=== PATIENT | female | born 1935 | race Caucasian/White ===

== ENCOUNTER 2017-03-09 10:34 | Emergency (ER) | payer MEDICARE, OTHER ==
[2017-03-09] MEDS ORDERED: diPHENhydraMINE IV* 50 MG/ML 1 ml VIAL (BENADRYL) IM ONE (11:21)
[2017-03-09] MEDS ORDERED: NS 0.9% 1000 ML* 1,000 ML IV ONE (11:21)
[2017-03-09] MEDS ORDERED: Metoclopramide IV* 5 MG/ML 2 ML VIAL IV ONE (11:21)
[2017-03-09] MEDS ORDERED: Ketorolac INJ* 30 MG/ML 1 ML VIAL IV ONE (11:21)
[2017-03-09] MEDS ORDERED: Morphine INJ* 4 MG/ML 1 ML SYRINGE IV ONE (11:21)
--- NOTE | 2017-03-09 11:48 | RAD ---
HISTORY: Right-sided headache and pain COMPARISONS: None TECHNIQUE: Multiple contiguous axial CT scans were obtained of the head without intravenous contrast. FINDINGS: HEMORRHAGE/INFARCT: There is no hemorrhage or acute infarct. MASSES/SHIFT: There is no mass or shift. EXTRA-AXIAL SPACES: There are no extra-axial fluid collections. SULCI AND VENTRICLES: The sulci and ventricles are normal in size and position for the patient's stated age. CEREBRUM: There are no focal parenchymal abnormalities. BRAINSTEM: There are no focal parenchymal abnormalities. CEREBELLUM: There are no focal parenchymal abnormalities. VESSELS: The vessels are grossly normal. PARANASAL SINUSES: The paranasal sinuses are clear. ORBITS: The orbits are unremarkable. BONES AND SOFT TISSUE: No bone or soft tissue abnormalities are noted. OTHER: None IMPRESSION: NO ACUTE INTRACRANIAL PATHOLOGY.
[2017-03-09 12:00] LABS: Hematocrit 42 % (35-47); Hemoglobin 13.9 g/dl (12.0-16.0); Mean Corpuscular HGB Conc 34 g/dl (31-36); Mean Corpuscular Hemoglobin 30 pg (27-31); Mean Corpuscular Volume 88 fL (80-97); Mean Platelet Volume 8 um3 (7.4-10.4); Red Cell Distribution Width 14 % (10.5-15); White Blood Count 10.1 10^3/ul (3.5-10.8)
[2017-03-09 12:17] LABS: Albumin 4.1 g/dL (3.2-5.2); BUN/Creatinine Ratio 19.1 (8-20); Calcium 9.9 mg/dL (8.6-10.3); EGFR African American 73.5 (>60); EGFR Non-African American 57.2 (>60); Globulin 2.7 g/dL (2-4); Potassium 3.8 mmol/L (3.5-5.0); Total Bilirubin 0.6 mg/dL (0.2-1.0); Total Protein 6.8 g/dL (6.4-8.9)
[2017-03-09 13:26] LABS: Erythrocyte Sed Rate 24 mm/Hr (0-40)
[2017-03-09 13:55] LABS: Urine Bacteria Absent (Absent); Urine Bilirubin Negative (Negative); Urine Glucose Negative (Negative); Urine Nitrite Negative (Negative)
[2017-03-09 15:16] LABS: C Reactive Protein 2.79 mg/L (< 5.00)
[2017-03-09] MEDS ORDERED: Iodixanol* (CONTRAST) 320 MG/ML 100 ML SDV IV ONE (15:31)
--- NOTE | 2017-03-09 16:00 | RAD ---
INDICATION: RIGHT side pain. Question aneurysm or mass. COMPARISON: Noncontrast head CT of the same date. TECHNIQUE: Multidetector CT images were obtained from the skull base to the vertex of the head with 60 mL Visipaque 320 IV contrast. Arterial phase of enhancement. Multiplanar reformation including maximum intensity projection. 3-D arterial volume rendering. Stenosis estimations based on denominator of distal arterial diameter. HEAD ANGIOGRAM REPORT: Mild calcific plaque at the carotid siphons without hemodynamic significant stenosis resulting. Unremarkable M1 and M2 segments of the middle cerebral arteries as well as the A1 and A2 segments of the anterior cerebral arteries. Suggestion of a patent anterior indicating artery. Normal variant dominant LEFT vertebral artery with both vertebral arteries patent and contributing to the basilar artery. Tortuous basilar artery without aneurysm. Unremarkable cerebellar artery origins. Patent posterior cerebral arteries are supplied primarily by the posterior circulation with normal variant hypoplastic posterior indicating arteries. No intracranial aneurysm or vascular malformation evident. No enhancing lesions evident. Patent dural venous sinuses with normal variant dominant RIGHT transverse and sigmoid sinus. IMPRESSION: Normal variation without pathologic finding of the intracranial arterial vasculature. Negative for intracranial aneurysm. CPT II: CPT II Codes: 3100F
[2017-03-09 16:49] VITALS: BP 123/55
--- NOTE | 2017-03-09 18:53 | ED ---
Lexis Deshpande Edward, scribed for Jose Guillaume MD on 03/09/17 at 1102 . Headache - HPI Summary HPI Summary: 81 y/o female BIBA c/o a constant, shooting DAWSON in the R side of the head starting yesterday. There were 4 episodes yesterday. Today the pain is constant and shooting. The pain radiates down the back of the neck. The pain is aggravated by touching the head. Associated sx: ABD pain, pain in R eye, incontinence, chills and R sinus clog. No vision deficit, no photophobia, no N/V , weakness in extremities, no numbness/tingling in extremities. PMHx migraines, COPD, CHF. - History Of Current Complaint Chief Complaint: EDHeadache Stated Complaint: HEADACHE Hx Obtained From: Patient Onset/Duration: Sudden Onset, Started days ago - Yesterday, Still Present Character: Pressure - with shooting Location of Headache: Other: - R side of head Associated Signs And Symptoms: Other (Noted In Comments) - Pain in R eye, incontinent, chills and R sinus clog. negative for N/V, vision deficit, photophobia, weakness in extremities - Allergies/Home Medications Allergies/Adverse Reactions: Allergies Allergy/AdvReac Type Severity Reaction Status Date / Time Sulfamethoxazole Allergy Unknown Verified 03/09/17 11:57 w/Trimethoprim Reaction [From Sulfatrim] Details PMH/Surg Hx/FS Hx/Imm Hx Previously Healthy: No Cardiovascular History: Reports: Hx Congestive Heart Failure Respiratory History: Reports: Hx Chronic Obstructive Pulmonary Disease (COPD) Neurological History: Reports: Hx Migraine Infectious Disease History: No Infectious Disease History: Denies: Traveled Outside the [place] in Last 30 Days - Family History Known Family History: Positive: Cardiac Disease - Father [place] @ 71, Other - Sister - [place] - Social History Occupation: Retired Lives: With Family Alcohol Use: Occasionally Hx Substance Use: No Substance Use Type: Reports: None Hx Tobacco Use: Yes Smoking Status (MU): Former Smoker Review of Systems Positive: Chills Eyes: Other - Pain in R eye Negative: Photophobia, Blurred Vision ENT: Other - Sinus pressure Cardiovascular: Negative Respiratory: Negative Positive: Abdominal Pain. Negative: Vomiting, Nausea Positive: incontinence Musculoskeletal: Negative Skin: Negative Neurological: Other - No numbness/tingling in extremities Positive: Headache. Negative: Weakness Psychological: Normal All Other Systems Reviewed And Are Negative: Yes Physical Exam - Summary Physical Exam Summary: The patient is well-nourished in no acute distress and in no acute pain. The skin is warm and dry and skin color reflects adequate perfusion. HEENT: The head is normocephalic and atraumatic. The pupils are equal and reactive. The conjunctivae are clear and without drainage. Nares are patent and without drainage. Mouth reveals moist mucous membranes and the throat is without erythema and exudate. The external ears are intact. The ear canals are patent and without drainage. The tympanic membranes are intact. There is no facial asymmetry. There is no rash on the face. There is tenderness over the R temporal artery. There is swelling in the R nostril. Neck is supple with full range of motion and non-tender. There are no carotid bruits. There is no neck vein distension. There is no nuchal rigidity. Respiratory: Chest is non-tender. The anterior aspect of the lungs are clear to auscultation and breath sounds are symmetrical and equal. Cardiovascular: Hear is regular rate and rhythm. There is no murmur or rub auscultated. There is no peripheral edema and pulses are symmetrical and equal. Abdomen: The abdomen is soft and non-tender. There are normal bowel sounds heard in all four quadrants and there is no organomegaly palpated. Musculoskeletal: There is no back pain noted. Extremities are non-tender with full range of motion. There is good capillary refill. There is no peripheral edema or calf tenderness elicited. Neurological: Patient is alert and oriented to person, place and time. The patient has symmetrical motor strength in all four extremities. Cranial nerves are grossly intact. Deep tendon reflexes are symmetrical and equal in all four extremities. Psychiatric: The patient has an appropriate affect and does not exhibit any anxiety or depression. Triage Information Reviewed: Yes Vital Signs On Initial Exam: Initial Vitals Temp Pulse Resp BP Pulse Ox 97.1 F 65 16 129/82 99 03/09/17 10:39 03/09/17 10:39 03/09/17 10:39 03/09/17 10:39 03/09/17 10:39 Vital Signs Reviewed: Yes Diagnostics - Vital Signs Vital Signs Temp Pulse Resp BP Pulse Ox 03/09/17 10:44 97.2 F 68 16 129/82 100 03/09/17 10:39 97.1 F 65 16 129/82 99 - Laboratory Lab Results: Lab Results 03/09/17 03/09/17 03/09/17 Range/Units 11:45 11:45 11:45 WBC 10.1 (3.5-10.8) 10^3/ul RBC 4.70 (4.0-5.4) 10^6/ul Hgb 13.9 (12.0-16.0) g/dl Hct 42 (35-47) % MCV 88 (80-97) fL MCH 30 (27-31) pg MCHC 34 (31-36) g/dl RDW 14 (10.5-15) % Plt Count 292 (150-450) 10^3/ul MPV 8 (7.4-10.4) um3 Neut % (Auto) 78.0 (38-83) % Lymph % (Auto) 14.9 L (25-47) % [place] % (Auto) 5.7 (1-9) % Eos % (Auto) 0.6 (0-6) % Baso % (Auto) 0.8 (0-2) % Absolute Neuts (auto) 7.9 H (1.5-7.7) 10^3/ul Absolute Lymphs (auto) 1.5 (1.0-4.8) 10^3/ul Absolute Monos (auto) 0.6 (0-0.8) 10^3/ul Absolute Eos (auto) 0.1 (0-0.6) 10^3/ul Absolute Basos (auto) 0.1 (0-0.2) 10^3/ul Absolute Nucleated RBC 0 10^3/ul Nucleated RBC % 0 ESR 24 (0-40) mm/Hr INR (Anticoag Therapy) (0.89-1.11) Sodium 136 (133-145) mmol/L Potassium 3.8 (3.5-5.0) mmol/L Chloride 101 (101-111) mmol/L Carbon Dioxide 28 (22-32) mmol/L Anion Gap 7 (2-11) mmol/L BUN 18 (6-24) mg/dL Creatinine 0.94 (0.51-0.95) mg/dL Est GFR ( Amer) 73.5 (>60) Est GFR (Non-Af Amer) 57.2 (>60) BUN/Creatinine Ratio 19.1 (8-20) Glucose 96 (70-100) mg/dL Lactic Acid 1.2 (0.5-2.0) mmol/L Calcium 9.9 (8.6-10.3) mg/dL Total Bilirubin 0.60 (0.2-1.0) mg/dL AST 21 (13-39) U/L ALT 16 (7-52) U/L Alkaline Phosphatase 62 (34-104) U/L C-Reactive Protein 2.79 (< 5.00) mg/L Total Protein 6.8 (6.4-8.9) g/dL Albumin 4.1 (3.2-5.2) g/dL Globulin 2.7 (2-4) g/dL Albumin/Globulin Ratio 1.5 (1-3) Urine Color Urine Appearance Urine pH (5-9) Ur Specific [place] (1.010-1.030) Urine Protein (Negative) Urine Ketones (Negative) Urine Blood (Negative) Urine Nitrate (Negative) Urine Bilirubin (Negative) Urine Urobilinogen (Negative) Ur Leukocyte Esterase (Negative) Urine WBC (Auto) (Absent) Urine RBC (Auto) (Absent) Ur Squamous Epith Cells (Absent) Urine Bacteria (Absent) Urine Glucose (Negative) 03/09/17 03/09/17 Range/Units 11:45 13:25 WBC (3.5-10.8) 10^3/ul RBC (4.0-5.4) 10^6/ul Hgb (12.0-16.0) g/dl Hct (35-47) % MCV (80-97) fL MCH (27-31) pg MCHC (31-36) g/dl RDW (10.5-15) % Plt Count (150-450) 10^3/ul MPV (7.4-10.4) um3 Neut % (Auto) (38-83) % Lymph % (Auto) (25-47) % [place] % (Auto) (1-9) % Eos % (Auto) (0-6) % Baso % (Auto) (0-2) % Absolute Neuts (auto) (1.5-7.7) 10^3/ul Absolute Lymphs (auto) (1.0-4.8) 10^3/ul Absolute Monos (auto) (0-0.8) 10^3/ul Absolute Eos (auto) (0-0.6) 10^3/ul Absolute Basos (auto) (0-0.2) 10^3/ul Absolute Nucleated RBC 10^3/ul Nucleated RBC % ESR (0-40) mm/Hr INR (Anticoag Therapy) 0.87 L (0.89-1.11) Sodium (133-145) mmol/L Potassium (3.5-5.0) mmol/L Chloride (101-111) mmol/L Carbon Dioxide (22-32) mmol/L Anion Gap (2-11) mmol/L BUN (6-24) mg/dL Creatinine (0.51-0.95) mg/dL Est GFR ( Amer) (>60) Est GFR (Non-Af Amer) (>60) BUN/Creatinine Ratio (8-20) Glucose (70-100) mg/dL Lactic Acid (0.5-2.0) mmol/L Calcium (8.6-10.3) mg/dL Total Bilirubin (0.2-1.0) mg/dL AST (13-39) U/L ALT (7-52) U/L Alkaline Phosphatase (34-104) U/L C-Reactive Protein (< 5.00) mg/L Total Protein (6.4-8.9) g/dL Albumin (3.2-5.2) g/dL Globulin (2-4) g/dL Albumin/Globulin Ratio (1-3) Urine Color Colorless Urine Appearance Clear Urine pH 8.0 (5-9) Ur Specific [place] 1.005 L (1.010-1.030) Urine Protein Negative (Negative) Urine Ketones Negative (Negative) Urine Blood Negative (Negative) Urine Nitrate Negative (Negative) Urine Bilirubin Negative (Negative) Urine Urobilinogen Negative (Negative) Ur Leukocyte Esterase Trace H (Negative) Urine WBC (Auto) Trace(0-5/hpf) (Absent) Urine RBC (Auto) Trace(0-2/hpf) (Absent) Ur Squamous Epith Cells Present H (Absent) Urine Bacteria Absent (Absent) Urine Glucose Negative (Negative) Result Diagrams: 03/09/17 11:45 03/09/17 11:45 Lab Statement: Any lab studies that have been ordered have been reviewed, and results considered in the medical decision making process. - CT BRAIN CT CT Interpretation: No Acute Changes - No acute intracranial pathology. CT Interpretation Completed By: Radiologist HEAD CT CT Interpretation: No Acute Changes - Normal variation without pathologic finding of the intracranial arterial vasculature. Negative for intracranial aneurysm. CPT II: CPT II Codes: 3100F CT Interpretation Completed By: Radiologist Re-Evaluation - Re-Evaluation 1 Re-Evaluation Time: 14:35 - Reviewed test and CT results Change: Improved - DAWSON gone 2 Re-Evaluation Time: 16:25 Change: Improved Headache Course/Dx - Course Assessment/Plan: 81 y/o female BIBA c/o a constant, shooting DAWSON in the R side of the head starting yesterday. There were 4 episodes yesterday. Today the pain is constant and shooting. The pain radiates down the back of the neck. The pain is aggravated by touching the head. BRAIN CT SHOWS NO ACUTE INTRACRANIAL PATHOLOGY. On reeval the patient's DAWSON has resolved spontatneously. Spoke with Dr. Christopher Santos of Neurology, who recommended taking a CTA Head/Neck to check for masses and other abnormalities, along with checking CRP levels. HEAD CT SHOWS Normal variation without pathologic finding of the intracranial arterial. vasculature. Negative for intracranial aneurysm. On 2nd re-eval the pt feels much improved. The pt will be d/c home with f/u with Dr. Santos within the week. - Diagnoses Differential Diagnosis/HQI/PQRI: CVA, Subarachnoid Hemorrhage, Temporal Arteritis, Other - malignancy, aneurysm Provider Diagnoses: Headache - Physician Notifications Discussed Care Of Patient With: Christopher Santos Time Discussed With Above Provider: 14:45 Instructed by Provider To: Other - Take CTA Head/Neck to check for mass or other abnormalities and add CRP test Discharge - Discharge Plan Condition: Stable Disposition: HOME Prescriptions: Hydrocodone-Acetaminophen [[place]ov[place] 5-325 mg] 1 tab PO Q6HR PRN #20 tab MDD 4 PRN Reason: headache Patient Education Materials: Hydrocodone/Acetaminophen (By mouth), Acute Headache (ED) Referrals: Christopher Santos MD [Medical Doctor] - 1 Week (Please follow-up within the week) Additional Instructions: Follow up with Dr. Santos next week-week of March 12 2017. The documentation as recorded by the scribe, Lexis,Edward accurately reflects the service I personally performed and the decisions made by me, Jose Guillaume MD.
--- NOTE | 2017-03-11 10:13 | ED ---
Progress - Progress Note Progress Note: Urine cx reveals no growth Re-Evaluation - Re-Evaluation 1 Re-Evaluation Time: 14:35 - Reviewed test and CT results Change: Improved - DAWSON gone 2 Re-Evaluation Time: 16:25 Change: Improved Course/Dx - Diagnoses Provider Diagnoses: Headache - Provider Notifications Time Discussed With Above Provider: 14:45 Instructed by Provider To: Other - Take CTA Head/Neck to check for mass or other abnormalities and add CRP test
== END 2017-03-09 17:00 | disposition home or self-care (01) ==
LOC: ED 10:34
DX: R51 Headache (principal); R10.9 Unspecified abdominal pain
CPT/HCPCS: 36415; 70450; 70496; 80053; 81003; 81015; 83605; 85025; 85610; 85652; 86140; 87077; 87086; 96374; 96375; 99283; J1200; J1885; J2270; Q9967

== ENCOUNTER 2018-03-12 10:25 | Emergency (ER) | payer MEDICARE, OTHER ==
[2018-03-12 10:37] VITALS: BP 121/57
--- NOTE | 2018-03-12 10:58 | UC ---
Respiratory Complaint HPI - HPI Summary HPI Summary: 3 DAYS OF PRODUCTIVE COUGH. NOW IS FEELING MORE AND MORE SOB. HAS RIGHT SIDED PLEURITIC PAIN. NO FEVER, N/V. HAS COPD BUT DOES NOT REQUIRE HOME O2. STATES BASELINE O2SAT 96-98%. ARRIVES TO WITH O2SAT 90%. FEELS WORN OUT. DENIES CP. - History of Current Complaint Chief Complaint: UCRespiratory Stated Complaint: CONGESTED Time Seen by Provider: 03/12/18 10:50 Hx Obtained From: Patient Onset/Duration: Gradual Onset, Lasting Days, Still Present Timing: Constant Severity Initially: Moderate Severity Currently: Moderate Pain Intensity: 8 Pain Scale Used: 0-10 Numeric Character: Cough: Productive Aggravating Factors: Exertion Alleviating Factors: Nothing Associated Signs And Symptoms: Positive: Dyspnea, Pleuritic Chest Pain. Negative: Fever, Wheezing - Allergies/Home Medications Allergies/Adverse Reactions: Allergies Allergy/AdvReac Type Severity Reaction Status Date / Time Sulfa (Sulfonamide Allergy Hives Verified 03/12/18 10:43 Antibiotics) sulfamethoxazole Allergy Hives Verified 03/12/18 10:43 Home Medications: Home Medications Albuterol HFA INHALER* [Ventolin HFA Inhaler*] 1 puff INH Q4H PRN 03/12/18 [ History Confirmed 03/12/18] Aspirin 81 mg CHEW TAB* 81 mg PO DAILY 03/12/18 [History Confirmed 03/12/18] Carbamazepine [Carbatrol] 200 mg PO BID 03/12/18 [History Confirmed 03/12/18] Fluoxetine HCl [Prozac] 20 mg PO 03/12/18 [History] Furosemide TAB* [Lasix TAB*] 20 mg PO DAILY 03/12/18 [History Confirmed 03/12/18 ] Gabapentin [Neurontin] 200 mg PO QID 03/12/18 [History Confirmed 03/12/18] Nitroglycerin 0.3 mg SL 03/12/18 [History] Simvastatin TAB(NF) [Zocor 10 MG (NF)] 10 mg PO DAILY 03/12/18 [History Confirmed 03/12/18] Verapamil TAB* [Calan TAB*] 120 mg PO BID 03/12/18 [History Confirmed 03/12/18] PMH/Surg Hx/FS Hx/Imm Hx Cardiovascular History: Cardiac Disease, Hypertension Respiratory History: COPD - Surgical History Surgical History: Yes Surgery Procedure, Year, and Place: APPENDECTOMY, HYSTERECTOMY, TONSILECTOMY, PARA THYROIDECTOMY FOR NODULE - Family History Known Family History: Positive: Cardiac Disease - Father [place] @ 71, Other - Sister - [place] - Social History Alcohol Use: Occasionally Substance Use Type: None Smoking Status (MU): Former Smoker Review of Systems Constitutional: Negative Skin: Negative Respiratory: Shortness Of Breath, Cough Cardiovascular: Negative Gastrointestinal: Negative All Other Systems Reviewed And Are Negative: Yes Physical Exam Triage Information Reviewed: Yes Appearance: No Pain Distress, Well-Nourished, Ill-Appearing - MILD Vital Signs: Initial Vital Signs Temp 97.3 F 03/12/18 10:31 Pulse 94 03/12/18 10:31 Resp 24 03/12/18 10:31 BP 121/57 03/12/18 10:31 Pulse Ox 90 03/12/18 10:31 Vital Signs Reviewed: Yes Eyes: Positive: Conjunctiva Clear ENT: Positive: Hearing grossly normal, Pharynx normal, TMs normal Neck: Positive: Supple, Nontender, No Lymphadenopathy Respiratory: Positive: No respiratory distress, No accessory muscle use, Decreased breath sounds, Crackles - RIGHT LUNG Cardiovascular: Positive: Other: - IRREGULARLY IRREGULAR Abdomen Description: Positive: Soft Musculoskeletal: Positive: No Edema Neurological: Positive: Alert Psychological: Positive: Age Appropriate Behavior Skin: Negative: rashes UC Diagnostic Evaluation - Laboratory O2 Sat by Pulse Oximetry: 90 - Radiology Xray Interpretation: Positive (See Comments) - 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 Possibility of a right upper lobe infiltrate is not excluded. Postoperative changes are noted Radiology Interpretation Completed By: Radiologist - EKG Cardiac Rate: NL - 94BPM Ectopy: PVCs ST Segment: Non-Specific Respiratory Course/Dx - Differential Dx/Diagnosis Provider Diagnoses: RUL PNEUMONIA, HYPOXIA, ABNORMAL EKG - Physician Notification/Consults Discussed Patient Care With: Lupe Banuelos - [facility] Time Discussed With Above Provider: 11:40 Instructed by Provider To: MD Will See In ED Discharge - Sign-Out/Discharge Documenting (check all that apply): Patient Departure - Discharge Plan Condition: Stable Disposition: TRANS HIGHER LVL OF CARE FAC Referrals: No Primary Care Phys,NOPCP [Primary Care Provider] - - Billing Disposition and Condition Condition: STABLE Disposition: Trans Higher Lvl of Care Fac
--- NOTE | 2018-03-12 11:27 | RAD ---
Indication: Right sided Rales with shortness of breath. 2 views of the chest are reviewed. There is interstitial fibrosis is noted. There is some peripheral airspace disease in the right upper lobe. This is nonspecific and this may represent element of pleural thickening although underlying infiltrate is not excluded. Calcified granuloma is noted in the right axilla. 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 Possibility of a right upper lobe infiltrate is not excluded. Postoperative changes are noted.
== END 2018-03-12 11:56 | disposition short-term general hospital (02) ==
LOC: UCEAST 10:25
DX: J18.9 Pneumonia, unspecified organism (principal); R09.02 Hypoxemia; R94.31 Abnormal electrocardiogram [ECG] [EKG]; J44.9 Chronic obstructive pulmonary disease, unspecified; I10 Essential (primary) hypertension; Z88.2 Allergy status to sulfonamides; Z79.82 Long term (current) use of aspirin; Z79.899 Other long term (current) drug therapy; Z87.891 Personal history of nicotine dependence
CPT/HCPCS: 71046; 93005; 99213; G0463

== ENCOUNTER 2018-03-12 12:16 | Inpatient (IN) | payer MEDICARE, OTHER ==
[2018-03-12] MEDS ORDERED: NS 0.9% 1000 ML* 1,000 ML IV ONE (12:21)
[2018-03-12] MEDS ORDERED: predniSONE TAB* 20 MG PO ONE (12:21)
[2018-03-12] MEDS ORDERED: Albuterol/Ipratropium NEB.SOL* Albuterol 2.5 MG/Ipratropium 0.5 MG 3 ML INH ONE (12:21)
[2018-03-12 12:46] LABS: Hematocrit 33 % (35-47); Mean Corpuscular HGB Conc 33 g/dl (31-36); Mean Corpuscular Hemoglobin 28 pg (27-31); Mean Corpuscular Volume 85 fL (80-97); Mean Platelet Volume 7.4 um3 (7.4-10.4); Platelet Count 357 10^3/ul (150-450); Red Blood Count 3.87 10^6/ul (4.00-5.40); Red Cell Distribution Width 14 % (10.5-15); White Blood Count 23.8 10^3/ul (3.5-10.8)
[2018-03-12 12:54] LABS: ABS Basophils 0.1 10^3/ul (0-0.2); ABS Eosinophils 0.1 10^3/ul (0-0.6); ABS Monocytes 2.1 10^3/ul (0-0.8); ABS Neutrophils 20.6 10^3/ul (1.5-7.7); ABS Nucleated RBC 0 10^3/ul; Eosinophil % 0.3 % (0-6); Nucleated Red Blood Cells % 0
--- NOTE | 2018-03-12 12:58 | ED ---
Shortness of Breath - HPI Summary HPI Summary: The patient is an 82 y/o female BIBA from Urgent Care c/o chest pain under right breast secondary to SOB since 3 days ago, worse yesterday. She notes productive coughs with green mucus but denies, N/V/D, fever, shaking and chills. Her PCP is in [place] and she expects to be in [place] for 1 week. The pt. quit smoking 4 years ago. She has a PMHx of HTN but denies a hx. of CA, DM and COPD. She is allergic to sulfur. She is on 4L of home O2. This is [employer] [place] documenting for attending Dr. Ulysses Chan - History of Current Complaint Chief Complaint: EDShortnessOfBreath Time Seen by Provider: 03/12/18 12:20 Hx Obtained From: Family/Stable Cleaner, EMS Onset/Duration: Lasting Days - 3 days ago, Still Present - Worse since yesterday Associated Signs & Symptoms: Cough (Productive), Chest Pain w/Cough - Allergy/Home Medications Allergies/Adverse Reactions: Allergies Allergy/AdvReac Type Severity Reaction Status Date / Time Sulfa (Sulfonamide Allergy Hives Verified 03/12/18 10:43 Antibiotics) sulfamethoxazole Allergy Hives Verified 03/12/18 10:43 Home Medications: Home Medications Nitroglycerin TAB 0.4 MG* 0.4 mg SL Q5M PRN 03/12/18 [History Confirmed 03/12/18 ] PMH/Surg Hx/FS Hx/Imm Hx Previously Healthy: No Endocrine/Hematology History: Denies: Hx Diabetes Cardiovascular History: Reports: Hx Hypertension - MEDICATED Denies: Hx Congestive Heart Failure, Hx Pacemaker/ICD Respiratory History: Reports: Hx Chronic Obstructive Pulmonary Disease (COPD) Denies: Hx Asthma Sensory History: Denies: Hx Hearing Aid Neurological History: Reports: Hx Migraine Psychiatric History: Denies: Hx Panic Disorder - Surgical History Surgery Procedure, Year, and Place: APPENDECTOMY, HYSTERECTOMY, TONSILECTOMY, PARA THYROIDECTOMY FOR NODULE Infectious Disease History: No Infectious Disease History: Denies: Traveled Outside the [place] in Last 30 Days - Family History Known Family History: Positive: Cardiac Disease - Father MA @ 71, Other - Sister - CA - Social History Occupation: Retired Lives: With Family Alcohol Use: Occasionally Hx Substance Use: No Substance Use Type: Reports: None Hx Tobacco Use: Yes Smoking Status (MU): Former Smoker Review of Systems Positive: Other - Negative : Tremors . Negative: Fever, Chills Positive: Chest Pain - Under right breast Positive: Shortness Of Breath, Cough - Productive with green mucus Negative: Vomiting, Diarrhea, Nausea All Other Systems Reviewed And Are Negative: Yes Physical Exam - Summary Physical Exam Summary: Appearance: Well appearing, no pain distress Skin: warm, dry, reflects adequate perfusion, no rashes Head/face: normal Eyes: EOMI, WALE ENT: normal Neck: Has para thyroidectomy scars Respiratory: breath sounds present; crackles ;expiratory wheeze in the right base Cardiovascular: RRR, pulses symmetrical Abdomen: Soft and benign Bowel Sounds: present Musculoskeletal: normal, strength/ROM intact Neuro: normal, sensory motor intact, A&Ox3 Triage Information Reviewed: Yes Vital Signs On Initial Exam: Initial Vitals Temp Pulse Resp BP Pulse Ox 98.7 F 87 22 131/77 97 03/12/18 12:22 03/12/18 12:22 03/12/18 12:22 03/12/18 12:22 03/12/18 12:22 Vital Signs Reviewed: Yes Diagnostics - Vital Signs Vital Signs Temp Pulse Resp BP Pulse Ox 03/12/18 12:43 88 20 93 03/12/18 12:22 98.7 F 87 22 131/77 97 - Laboratory Lab Results: Lab Results 03/12/18 Range/Units 12:38 WBC 23.8 H (3.5-10.8) 10^3/ul RBC 3.87 L (4.00-5.40) 10^6/ul Hgb 11.0 L (12.0-16.0) g/dl Hct 33 L (35-47) % MCV 85 (80-97) fL MCH 28 (27-31) pg MCHC 33 (31-36) g/dl RDW 14 (10.5-15) % Plt Count 357 (150-450) 10^3/ul MPV 7.4 (7.4-10.4) um3 Neut % (Auto) Pending Lymph % (Auto) Pending [place] % (Auto) Pending Eos % (Auto) Pending Baso % (Auto) Pending Absolute Neuts (auto) Pending Absolute Lymphs (auto) Pending Absolute Monos (auto) Pending Absolute Eos (auto) Pending Absolute Basos (auto) Pending Absolute Nucleated RBC Pending Nucleated RBC % Pending Result Diagrams: 03/12/18 12:38 03/12/18 12:38 Lab Statement: Any lab studies that have been ordered have been reviewed, and results considered in the medical decision making process. Re-Evaluation - Re-Evaluation First Eval Re-Evaluation Time: 13:37 Change: Improved Comment: Her BNP and troponin returned elevated; Pt. feels better with fluids ; ED Physician stopped fluids for a while Course/Dx - Course Course Of Treatment: Patient with a long history of smoking and known COPD. Has been having a cough productive of a greenish sputum. WBC is elevated at 23. There was some evidence of right upper lobe infiltrate on x-ray. The x- ray to me also looks to be mildly congested that was read as interstitial lung disease. Her BNP and troponin are elevated. IV fluids were started and then discontinued given the possibility of concomitant CHF. Discussed the case with the hospitalist will admit. Patient received IV Levaquin. - Diagnoses Provider Diagnoses: COPD exacerbation, CHF (congestive heart failure), Right upper lobe pneumonia - Physician Notifications Discussed Care of Patient With: Vanessa Hong - Hospitalist Time Discussed With Above Provider: 13:20 Instructed by Provider To: Admit As Inpatient - Dr. Hong agreed to admit the pt. - Critical Care Time Critical Care Time: 30-74 min - Critical care time is exclusive of separately billable procedures. Discharge - Sign-Out/Discharge Documenting (check all that apply): Patient Departure - Admit - Discharge Plan Condition: Fair Disposition: ADMITTED TO [facility] - Billing Disposition and Condition Condition: FAIR Disposition: Admitted to [facility]
[2018-03-12 13:04] LABS: INR 1.04 (0.77-1.02)
[2018-03-12 13:18] LABS: EGFR Non-African American 78.8 (>60)
[2018-03-12] MEDS ORDERED: Nitroglycerin TAB 0.4 MG* 0.4 MG TAB SL PRN (15:32)
[2018-03-12] MEDS ORDERED: cefTRIAXone VIAL(*) 1,000 MG VIAL IVPB ONE (15:36)
[2018-03-12] MEDS ORDERED: NS 0.9% 1000 ML* 1,000 ML IV SCH (15:45)
[2018-03-12] MEDS ORDERED: Azithromycin IV(*) 500 MG in NS 0.9% 250 ML* 250 ML IVPB SCH (16:00)
[2018-03-12 16:32] LABS: Urine Appearance Cloudy; Urine Blood 1+ (Negative); Urine Color Yellow; Urine Ketones Trace (Negative); Urine Protein Negative (Negative); Urine Red Blood Cell Trace(0-2/hpf) (Absent); Urine Specific Gravity 1.009 (1.010-1.030); Urine Urobilinogen Negative (Negative); Urine White Blood Cell 2+(11-20/hpf) (Absent)
[2018-03-12] MEDS ORDERED: cefTRIAXone(*) 1 GM in NS 0.9% 50 ML* 50 ML IVPB SCH (17:00)
[2018-03-12] MEDS: Gabapentin CAP(*) 100 MG PO SCH ×2 (17:55→21:10)
--- NOTE | 2018-03-12 19:17 | HP ---
HISTORY AND PHYSICAL: DATE OF ADMISSION: 03/12/18 PROVIDER: Hazel Merchant NP ATTENDING PHYSICIAN: Vanessa Hong DO * (report dictated by Hazel Merchant NP) PRIMARY CARE PROVIDER: Catie Gardner NP, at [facility] in [place], [place]. CHIEF COMPLAINT: Sent from urgent care for 3 days of weakness, cough, pleuritic pain, found to be hypoxic with concern for right upper lobe pneumonia. HISTORY OF PRESENT ILLNESS: Ms. Bates is a 82-year-old female with a past medical history of previous tobacco abuse, quitting 4 years ago; COPD; trigeminal neuralgia; possible history of coronary artery disease with history of [place], who currently resides in [place], [place] and is in [place], [place] visiting her sons with her . She reports that she arrived 6 days ago and was at her normal baseline health, which is pretty high functioning. She reports starting approximately 3 days ago, she developed weakness and feeling like she was coming down with a cold. She then developed a cough of sputum production, shortness of breath, and right "sharp" chest pain. The patient denies wheezing. She denies fever or chills. No abdominal pain, nausea, vomiting, or diarrhea. She reports poor appetite and has not been drinking fluids reporting she has mostly been lying in bed for the past 3 days. She reports yesterday, she started to feel worse and today when she did not feel any better, her family took her to urgent care where she was evaluated by Dr. Mejia and she was noted to be hypoxic with an O2 sat of 90%. She also underwent a chest x-ray, which showed a possibility of a right upper lobe infiltrate. The patient was sent to the emergency department via EMS. Labs in the emergency department are showing leukocytosis of 23.8 K. She is also presenting with a troponin of 0.06 and noted to have some ST depressions in lead I, V4, V5, V6. She denies chest pain or pressure, reporting that her chest pain is sharp with inspiration. The patient was seen and evaluated in the emergency department when she was found to be lying in bed, resting with her eyes closed. She awoke easily and was found to be alert and oriented x3. She is a good historian. She reports currently she feels better than she has in the last couple of days. She continues to have a productive cough and right-sided chest pain with inspiration. She continues to report generalized weakness, poor appetite. In regards to the patient's questionable history of coronary artery disease, she reports that she was hospitalized for 2 days 6 to 8 years ago and was told that she possibly had had a [place], but she is not sure of the details. Since then , she follows with a lawn maintenance worker yearly where she undergoes an annual EKG and reports that all of her cardiac testing has been stable and/or negative. PAST MEDICAL HISTORY: 1. COPD (does not require home oxygen). 2. Tobacco abuse. The patient quit approximately 4 years ago. 3. History of trigeminal neuralgia (diagnosed approximately 1 year ago). 4. Possible coronary artery disease with history of NY?. 5. Hypertension. 6. Hyperlipidemia. 7. Depression. MEDICATIONS: Home medications 1. Verapamil 120 mg p.o. daily. 2. Simvastatin 10 mg p.o. daily. 3. Nitroglycerin 0.4 mg sublingual q.5 minutes p.r.n. 4. Neurontin 200 mg p.o. 4 times a day. 5. Albuterol HFA inhaler 1 puff INH q.4 hours p.r.n. 6. Lasix 20 mg p.o. daily. 7. Prozac 20 mg p.o. daily. 8. Carbatrol 200 mg p.o. b.i.d. (prescribed for trigeminal neuralgia). 9. Aspirin 81 mg p.o. daily. ALLERGIES: SULFA and SULFAMETHOXAZOLE. FAMILY HISTORY: The patient's father had a history of coronary artery disease. Her sister of lung cancer. SOCIAL HISTORY: The patient reports tobacco abuse for approximately 50 years, quitting 4 years ago. Rare alcohol use. She is currently retired. She lives with her in [place], [place] and lists him as her health care proxy. She has 4 children. REVIEW OF SYSTEMS: A 14-point review of systems was performed. All the pertinent positives and negatives are mentioned in the history of present illness. Otherwise are negative. PHYSICAL EXAMINATION GENERAL APPEARANCE: Alert and oriented x3, in no acute distress. A well- developed 82-year-old female. Good historian. VITAL SIGNS: Temperature 98.7, heart rate 94, respirations 20, O2 sat 95% on 2 L nasal cannula, and blood pressure 145/73. HEENT: Head is normocephalic, atraumatic. Pupils are equal and reactive to light. Oropharynx is clear. Dry mucous membranes. No oropharyngeal erythema noted. NECK: Supple. No cervical or supraclavicular lymphadenopathy. RESPIRATORY: Lungs bilaterally are diminished. Right upper lobe crackles noted. No accessory muscle use. Respirations are easy. CARDIAC: S1, S2. Regular rate and rhythm. No murmurs, rubs, or gallops appreciated. No lower extremity edema noted. 2+ DP pulses bilaterally. ABDOMEN: Soft, nontender, nondistended. Normal bowel sounds throughout. MUSCULOSKELETAL: No clubbing, cyanosis, or edema. Full range of motion in all extremities. Strength is 5/5 throughout. NEURO: Cranial nerves II through XII are grossly intact. Moves all extremities equally. Sensation to lower extremities intact to light touch. PSYCH: Alert and oriented x3. Appropriate to situation. Very pleasant. Good historian. SKIN: No rashes, lesions, wounds noted. Skin is warm, pink, and dry. LABORATORY DATA AND DIAGNOSTIC STUDIES: Sodium 130, potassium 3.7, chloride 94 , carbon dioxide 28, anion gap 8, BUN 13, creatinine 0.71, glucose 107. Lactic acid 1.3. Calcium 9.1. Total bilirubin 0.70. AST 90, ALT 61, alkaline phosphatase 179. Troponin 0.06. BNP 1691. Total protein 6.9, albumin 3.8. INR 1.04. WBC is 23.8, RBC is 3.87, HGB 11.0, HCT 33, MCV 85, MCH 28, MCHC 33, RDW 14, platelet count 357. Chest x-ray, impression: "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 Possibility of right upper lobe infiltrate is not excluded. Postoperative changes are noted." EKG, sinus rhythm with a rate of 94, right bundle-branch block, ST depression is noted in lead I, V2 through V5. ASSESSMENT AND PLAN: Ms. Bates is a 82-year-old female with a past medical history of chronic obstructive pulmonary disease, history of tobacco abuse, trigeminal neuralgia, history of coronary artery disease, hyperlipidemia, depression, who initially presented to urgent care with complaint of 3 days of weakness, cough, right upper chest wall sharp pain, shortness of breath, found to be hypoxic with an O2 sat of 90% and concern for right upper lobe pneumonia. 1. Pneumonia. Right upper lobe. The patient's qSOFA score is 1. The patient does meet sepsis criteria with leukocytosis, heart rate greater than 90, respirations greater than 20 and hypoxia. Blood cultures have been sent. She has not received any antibiotics or fluids; therefore, I will start her on ceftriaxone 1 g q.24 hours and azithromycin 500 mg IV q.24 hours. She will be started on normal saline 100 mL an hour x1 L and reevaluated as the patient does have an elevated BNP and does have some noted crackles. The patient is currently hemodynamically stable and has improved since her arrival to the emergency department. She was given prednisone 60 mg p.o. x1 in the emergency department. I will continue her on prednisone 40 mg p.o. daily. DuoNebs q.4 hours while awake. We will order sputum culture. Urine Legionella and S. pneumoniae urine antigens will be sent. Add on procalcitonin and CRP. Check CBC and BMP in the morning. 2. Elevated troponin with abnormal EKG. The patient does have right pleuritic chest pain over the site where the pneumonia is noted on the chest x-ray. I suspect her elevated troponinsare secondary to demand ischemia. Will trend troponins in which one is due now and I discussed this with the ER nurse as well as we will repeat the EKG now. Continue daily aspirin. Again, per the patient, her history of coronary artery disease is unclear. She was told that she did have a possible NY many years ago. She sees a lawn maintenance worker yearly for follow up EKG. Will try to obtain records 3. Chronic obstructive pulmonary disease exacerbation. See above for pneumonia treatment. 4. Hypertension. She is slightly hypertensive in the emergency department with systolic blood pressures in the 140s. I will continue her verapamil home dose. 5. Trigeminal neuralgia. The patient was diagnosed approximately 1 year ago. Continue gabapentin and Carbatrol. 6. Hyponatremia. Suspect in the setting of dehydration. We will give gentle fluids overnight and recheck sodium in the morning. 7. Transaminitis. Mildly elevated, unclear etiology. Exam benign. We will recheck in the morning. 8. DVT prophylaxis. Heparin subcu. 9. Code status. Full code. 10. Hospital status. Inpatient for pneumonia and sepsis. TIME SPENT: Approximately 70 minutes were spent on this admission. HAZEL MERCHANT, BEATER MACHINE OPERATOR [id number]/[facility] #: [id number] [facility]IC CENTERRashel
[2018-03-12] MEDS: Albuterol/Ipratropium NEB.SOL* Albuterol 2.5 MG/Ipratropium 0.5 MG 3 ML INH SCH (20:15)
[2018-03-12] MEDS ORDERED: carBAMazepine TAB(*) 200 MG PO SCH (21:00)
[2018-03-12] MEDS: Heparin VIAL(*) 5000 UNITS/ML VIAL (FIVE THOUSAND) SUBCUT SCH (21:12)
[2018-03-12] MEDS: Verapamil TAB* 120 MG PO SCH (21:23)
[2018-03-13] MEDS: Albuterol/Ipratropium NEB.SOL* Albuterol 2.5 MG/Ipratropium 0.5 MG 3 ML INH SCH ×3 (00:53→07:13)
[2018-03-13 05:49] LABS: Hematocrit 29 % (35-47); Hemoglobin 9.5 g/dl (12.0-16.0); Mean Corpuscular HGB Conc 33 g/dl (31-36); Mean Corpuscular Hemoglobin 28 pg (27-31); Mean Corpuscular Volume 85 fL (80-97); Mean Platelet Volume 7.4 um3 (7.4-10.4); Platelet Count 303 10^3/ul (150-450); Red Blood Count 3.36 10^6/ul (4.00-5.40); Red Cell Distribution Width 15 % (10.5-15); White Blood Count 21.8 10^3/ul (3.5-10.8)
[2018-03-13] MEDS: Acetaminophen TAB* 325 MG PO PRN ×2 (05:55→11:12)
[2018-03-13] MEDS: Heparin VIAL(*) 5000 UNITS/ML VIAL (FIVE THOUSAND) SUBCUT SCH ×3 (05:56→20:35)
[2018-03-13 06:27] LABS: ABS Basophils 0 10^3/ul (0-0.2); ABS Neutrophils 17.7 10^3/ul (1.5-7.7); Monocytes % 4 % (0-7)
[2018-03-13 07:58] LABS: EGFR Non-African American 81.5 (>60)
--- NOTE | 2018-03-13 08:13 | PN ---
Subjective Date of Service: 03/13/18 Interval History: Patient reports she didn't sleep well overnight due to noise and feels exhausted today. Today she feels a little worse than yesterday but relates this to not sleeping. She continues to feel better than 3-4 days ago when she initially became sick. She c/o of continue right "back/rib" pain as she points to her RUQ. When asked if the RUQ pain is new (she did not report this on admission) she states it has been intermittent under her rib radiating to her back. No fevers or chills. No N/V/D. Has been ambulating to the bathroom and back and feels steady on her feet. She denies dysuria, hematuria or frequency. Objective Active Medications: Acetaminophen (Tylenol Tab*) 650 mg PO Q4H PRN PRN Reason: PAIN Last Admin: 03/13/18 05:55 Dose: 650 mg Albuterol/Ipratropium (Duoneb (Albuterol 2.5 Mg/Ipratropium 0.5 Mg)) 1 neb INH [id number] AWAKE [facility] Last Admin: 03/13/18 07:13 Dose: 1 neb Aspirin (Aspirin 81 Mg Chew Tab*) 81 mg PO DAILY [facility] Carbamazepine (Tegretol Tab(*)) 200 mg PO BID [facility] Last Admin: 03/12/18 21:11 Dose: 200 mg Fluoxetine HCl (Prozac Cap*) 20 mg PO DAILY [facility] Gabapentin (Neurontin Cap(*)) 200 mg PO QID [facility] Last Admin: 03/12/18 21:10 Dose: 200 mg Heparin Sodium (Porcine) (Heparin Vial(*)) 5,000 units SUBCUT Q8HR [facility] Last Admin: 03/13/18 05:56 Dose: 5,000 units Azithromycin 500 mg/ Sodium (Chloride) 250 mls @ 250 mls/hr IVPB Q24H [facility] Last Admin: 03/12/18 17:54 Dose: 250 mls/hr Ceftriaxone Sodium 1 gm/ (Sodium Chloride) 50 mls @ 200 mls/hr IVPB Q24H [facility] Last Admin: 03/12/18 16:49 Dose: 200 mls/hr Nitroglycerin (Nitroglycerin Tab 0.4 Mg*) 0.4 mg SL Q5M PRN PRN Reason: ANGINA Prednisone (Deltasone Tab*) 40 mg PO DAILY [facility] Verapamil HCl (Calan Tab*) 120 mg PO BID [facility] Last Admin: 03/12/18 21:23 Dose: 120 mg Vital Signs - 8 hr 03/13/18 03/13/18 03/13/18 03:48 04:18 07:14 Temperature 98.0 F Pulse Rate 76 78 Respiratory 20 19 16 Rate Blood Pressure 117/52 (mmHg) O2 Sat by Pulse 100 98 Oximetry 03/13/18 03/13/18 07:48 08:01 Temperature 98.5 F Pulse Rate 41 90 Respiratory 16 Rate Blood Pressure 121/49 (mmHg) O2 Sat by Pulse 93 Oximetry Oxygen Devices in Use Now: Nasal Cannula Result Diagrams: 03/13/18 05:42 03/13/18 05:43 Additional Lab and Data: Lab Results 03/12/18 Range/Units 12:38 WBC 23.8 H (3.5-10.8) 10^3/ul RBC 3.87 L (4.00-5.40) 10^6/ul Hgb 11.0 L (12.0-16.0) g/dl Hct 33 L (35-47) % MCV 85 (80-97) fL MCH 28 (27-31) pg MCHC 33 (31-36) g/dl RDW 14 (10.5-15) % Plt Count 357 (150-450) 10^3/ul MPV 7.4 (7.4-10.4) um3 Neut % (Auto) Pending Lymph % (Auto) Pending [place] % (Auto) Pending Eos % (Auto) Pending Baso % (Auto) Pending Absolute Neuts (auto) Pending Absolute Lymphs (auto) Pending Absolute Monos (auto) Pending Absolute Eos (auto) Pending Absolute Basos (auto) Pending Absolute Nucleated RBC Pending Nucleated RBC % Pending Microbiology and Other Data: Microbiology 03/12/18 15:35 Legionella Urinary Antigen - Final Urine Negative Legionella Antigen Streptococcus pneumoniae Ag Screen - Final Negative S. pneumo Antigen Assess/Plan/Problems-Billing Assessment: 82 yo female with PMH of COPD, tobacco abuse (quit 4 years ago), trigeminal neuralgia, CAD who lives in [place] who presented with 3 days of weakness, cough and right sharp chest pain admitted with sepsis thought to be secondary to right upper lung pneumonia, now found to have a UTI and possible acute cholecystitis. - Patient Problems (1) Sepsis Comment: - resolved. patient has a possible right upper lobe pneumonia, acute cholecystitis and urine cx growing ecoli > 100K. Seems unlikely she would have 3 acute processes however it does appears that it may be possible. - Blood cx pending, urine cx sensitivity pending - continue zosyn, cefepime (2) Pneumonia Comment: - concern for pneumonia with report of cough, hypoxia and wekaness with chest xray showing "appears to be COPD with chronic interstitial disease. Possibility of a rught upper lobe infiltrate is note excluded" - will continue to try to wean supplemental O2, on 2L NC. - continue nebs prn - repeat Chest xray (3) Transaminitis Comment: - Concern for acute cholecystitis - mild with elevated alk phos. Obtained a liver u/s which shows "hepatomegaly with fatty liver infiltration of the liver. Gallbaldder wall thickening with small amount pericholecystic fluid. Differential includes acalculous cholecystitis in the correct clinical setting". - Check LFTS this afternoon (4) Elevated troponin Comment: - abnormal EKG with noted ST depressions V2-V5. - Troponins 0.05 x3 - asymptomatic (5) Hyponatremia Comment: mild. improving. (6) COPD (chronic obstructive pulmonary disease) Comment: - continue neb treatments (7) HTN (hypertension) Comment: - controlled. continue Verapimil. Hold lasix. (8) CAD (coronary artery disease) Comment: distant hx of [place] 6-8 years ago? Follows with a Consumer Services Consultant yearly in which she states she has been stable. Will try to obtain records from bed laborer office. (9) Trigeminal neuralgia Comment: - dx approx 1 year ago. continue Gapepentin, hold Carbatrol in the setting of elevated LFTS. Carbatrol level wnls. (10) DVT prophylaxis Comment: HSQ Status and Disposition: inpatient. tentative plan for surgery tomorrow.
[2018-03-13] MEDS: Aspirin 81 mg CHEW TAB* 81 MG TAB.CHEW PO SCH (08:43)
[2018-03-13] MEDS: Gabapentin CAP(*) 100 MG PO SCH ×4 (08:44→20:35)
[2018-03-13] MEDS: Verapamil TAB* 120 MG PO SCH (08:44)
[2018-03-13] MEDS: FLUoxetine CAP* 20 MG PO SCH (08:44)
[2018-03-13] MEDS ORDERED: predniSONE TAB* 20 MG PO SCH (09:00)
--- NOTE | 2018-03-13 09:21 | RAD ---
HISTORY: transaminitis COMPARISONS: None TECHNIQUE: Multiple transverse and longitudinal ultrasound images were obtained of the right upper quadrant of the abdomen using grayscale and color Doppler imaging. FINDINGS: LIVER: The liver is diffusely echogenic and coarse in echotexture, with decreased acoustic transmission. The liver measures 20.5 cm in long axis.. There is normal hepatopedal flow of the portal vein on Doppler imaging. BILIARY TREE: There is no intrahepatic or extrahepatic biliary dilatation. The common duct measures 0.4 cm. GALLBLADDER: There is gallbladder wall thickening up to 0.8 cm. There is a small amount of pericholecystic fluid. There is no appreciable cholelithiasis. Sludge is noted within the gallbladder. Presence or absence of a sonographic Reyes sign is not recorded. PANCREAS: The head of the pancreas is unremarkable. The tail of the pancreas is not well visualized secondary to overlying bowel gas. RIGHT KIDNEY: There is simple cysts of the right kidney measuring up to 1.4 cm. There is no hydronephrosis or nephrolithiasis. The right kidney measures 10.6 x 4.3 x 4.4 cm. AORTA AND IVC: The aorta and IVC are unremarkable. FLUID: There are no pleural effusions. There is no free fluid within the hepatorenal recess. OTHER FINDINGS: None. IMPRESSION: 1. HEPATOMEGALY WITH FATTY INFILTRATION OF THE LIVER. 2. GALLBLADDER WALL THICKENING WITH SMALL AMOUNT PERICHOLECYSTIC FLUID. ON IMAGING FEATURES ARE INDETERMINATE, THE DIFFERENTIAL DOES INCLUDE ACALCULOUS CHOLECYSTITIS IN THE CORRECT CLINICAL SETTING.
[2018-03-13] MEDS ORDERED: Piperacillin/Tazobac ADVAN(*) 3.375 GM in NS 0.9% 100 ML* 100 ML IVPB ONE (11:30)
[2018-03-13] MEDS ORDERED: Zosyn per Pharmacy* NOTE FOLLOW UP SCH (12:00)
--- NOTE | 2018-03-13 13:17 | ECHO ---
Patient: EDWAR POLLOCK [facility] Rec#: [id number] : 1935 Date: 03/13/2018 Age: 82y Height: 165.1 cm / 65.0 in Weight: 83.91 kg / 184.9 lbs Sex: F BSA: 1.91 Room#: [facility] Admit Date#: 03/12/2018 Type: Inpatient Referring: Gege Lyle Reading: Puma Holland DO Reimbursement Coordinator: Soniya Jenkins [facility] Transthoracic Echocardiogram Indication: Abn EKG BP: 121/49 HR: 99 Rhythm: NSR with PVCs Findings History: COPD,trigeminal neuraglia,?old ND,HTN,HLD,depression. Technical Comments: The study quality is good. Completed at 1228. Left Ventricle: The left ventricular chamber size is normal. There is no left ventricular hypertrophy. There is normal left ventricular systolic function. The estimated ejection fraction is 55-60%. Abnormal left ventricular diastolic function is observed. The basal inferior, and mid inferior wall segments are hypokinetic (score 2). Overall wallmotion score index is 2.00 Left Atrium: The left atrium is moderately dilated. Right Ventricle: The right ventricular cavity size is normal. The right ventricular global systolic function is mildly reduced. Right Atrium: The right atrium is mild to moderately dilated. Aortic Valve: The aortic valve is trileaflet. There is no evidence of aortic valve thickening. There is a trace of aortic regurgitation. There is no evidence of aortic stenosis. Mitral Valve: The mitral valve leaflets are mildly thickened. There is mild mitral regurgitation. There is no evidence of mitral stenosis. Tricuspid Valve: The tricuspid valve leaflets are normal. There is mild to moderate tricuspid regurgitation. There is evidence of mild pulmonary hypertension. There is no tricuspid stenosis. Pulmonic Valve: The pulmonic valve appears normal. There is no evidence of pulmonic regurgitation. There is no pulmonic stenosis. Pericardium: There is no significant pericardial effusion. Aorta: There is no dilatation of the ascending aorta. There is no dilatation of the aortic arch. There is no dilation of the aortic root. Pulmonary Artery: The main pulmonary artery is not well visualized. Venous: The inferior vena cava is dilated. There is an approximate 50% respiratory change in the inferior vena cava dimension. Conclusions The left ventricular chamber size is normal. There is no left ventricular hypertrophy. There is normal left ventricular systolic function. The estimated ejection fraction is 55-60%. The basal inferior, and mid inferior wall segments are hypokinetic The left atrium is moderately dilated. The right ventricular cavity size is normal. The right ventricular global systolic function is mildly reduced. The right atrium is mild to moderately dilated. There is mild to moderate tricuspid regurgitation. There is evidence of mild pulmonary hypertension. None prior for comparison at time of interpretation Measurements Name Value Normal Range RVIDd (AP) 2D 2.7 cm (0.9 - 2.6) RVDdMajor (2D) 2.8 cm (2.2 - 4.4) RVAW (2D) 0.8 cm (0.2 - 0.5) RAd ISD 4CH 5.5 cm (3.4 - 4.9) RA (A4C)W 3.8 cm (2.9 - 4.6) IVSd (2D) 0.9 cm (0.6 - 1) LVPWd (2D) 0.9 cm (0.6 - 1) LVIDd (2D) 4.5 cm (3.6 - 5.4) LVIDs (2D) 3.3 cm - LV FS (2D) 27 % (25 - 45) Aortic Annulus 2 cm (1.4 - 2.6) Ao root diameter (2D) 3.2 cm (2.1 - 3.5) Ascending Ao 2.5 cm (2.1 - 3.4) Aortic arch 2.5 cm (1.8 - 3.4) Descending Ao 0.6 cm - LA dimension (AP) 2D 4 cm (2.3 - 3.8) LAd ISD 4CH 6.6 cm (2.9 - 5.3) LA ISD 4CH W 4.4 cm (2.5 - 4.5) Name Value Normal Range LA ESV SP 4CH (A/L) 92 ml - LA ESV BP (A/L) 80 ml - LA ESV BP (A/L) index 41.72 ml/m2 - LA ESV SP 4CH (MOD) 83 ml - LA ESV SP 2CH (MOD) 63 ml - Name Value Normal Range MV E-wave Vmax 1.2 m/sec - MV deceleration time 138 msec - MV A-wave Vmax 0.5 m/sec - MV E:A ratio 2.25 ratio - LV septal e' Vmax 0.07 m/sec - LV lateral e' Vmax 0.07 m/sec - LV E:e' septal ratio 17.14 ratio - LV E:e' lateral ratio 17.14 ratio - Name Value Normal Range AV Vmax 1.2 m/sec - AV VTI 25 cm - AV peak gradient 5.49 mmHg - AV mean gradient 2.67 mmHg - LVOT Vmax 1 m/sec - LVOT VTI 20.6 cm - LVOT peak gradient 4.17 mmHg - LVOT mean gradient 1.82 mmHg - AR PHT 331 msec - AR peak gradient 87.4 mmHg - Name Value Normal Range MR Vmax 4.2 m/sec - MR VTI 132 cm - Name Value Normal Range TR Vmax 3 m/sec - TR peak gradient 37 mmHg - RAP 8 mmHg - RVSP 45 mmHg - IVC diameter 2.3 cm - Name Value Normal Range PV Vmax 0.8 m/sec - PV peak gradient 2.36 mmHg - Wallmotion BAS Not Seen BA Not Seen BAL Not Seen TERRI Not Seen BI Hypokinetic BIS Not Seen MAS Not Seen MA Not Seen MAL Not Seen MIL Not Seen ND Hypokinetic MIS Not Seen Not Seen AA Not Seen AL Not Seen AI Not Seen APEX Not Seen
[2018-03-13] MEDS: Cefepime 1 GM in Dextrose(*) 1 GM/50 ML BAG IV SCH (13:20)
--- NOTE | 2018-03-13 14:16 | RAD ---
INDICATION: Possible pneumonia. COMPARISON: Comparison is made with a prior chest x-ray study from March 12, 2018. TECHNIQUE: Dual-energy PA and lateral views of the chest were obtained. FINDINGS: The heart is mildly enlarged and unchanged from the prior study. There is diffuse prominence of the interstitial markings which is unchanged. No focal infiltrate is seen. There is mild elevation of the right hemidiaphragm which is unchanged. There is flattening of the diaphragms suggestive of chronic defect or pulmonary disease. No pleural effusion is seen. IMPRESSION: FINDINGS SUGGESTIVE OF CHRONIC INTERSTITIAL LUNG DISEASE AND COPD ALTHOUGH THE POSSIBILITY OF SUPERIMPOSED PULMONARY EDEMA CANNOT BE EXCLUDED.
--- NOTE | 2018-03-13 14:34 | CONSULT ---
Subjective Date of Service: 03/13/18 Interval History: Admission Date: 03/12/18 Consult Date 03/13/2018 Provider: Hospitalist service PRIMARY CARE PROVIDER: Catie Gardner NP, at [facility] in [place], [place]. CHIEF COMPLAINT: Weakness, cough, pleuritic pain, hypoxia Reason for consult: Abnormal ekg HISTORY OF PRESENT ILLNESS: Sangita Bates is a 82-year-old woman with a PMHx as below. She is originally from this area. She lives in [place] and is visiting family. She was admitted with the above symptoms and diagnosed with both pneumonia and acalculous cholecystitis. Her breathing has worsened since she has been in the hospital and by records is 3 liters net positive. I discussed with Dr. Luong and there are no surgical plans to treat her gallbladder disease. Prior to this event she has been at her baseline level of health limited at 6 stairs due to her COPD. She has had no exertional pain. Her right lower costal pain overlaps with RUQ pain. It is reproducible on exam. She has no current edema. No history of palpitations or syncope. PAST MEDICAL HISTORY: 1. COPD (does not require home oxygen) 2. Tobacco abuse. The patient quit approximately 4 years ago. 3. History of trigeminal neuralgia 4. HFpEF 5. Hypertension. 6. Hyperlipidemia. 7. Depression. 8. CAD. Above 6-8 years ago thought had SC but catheterization only showed a "tiny blockage" and did not need a stent. Follows yearly with [facility] in [place], she states had an unremarkable stress test about 2-3 years ago. ALLERGIES: SULFA and SULFAMETHOXAZOLE. FAMILY HISTORY: The patient's father had a history of coronary artery disease. Her sister of lung cancer. SOCIAL HISTORY: The patient reports tobacco abuse for approximately 50 years, quitting 4 years ago. Rare alcohol use. She is currently retired. She lives with her in [place], [place] and lists him as her health care proxy. She has 4 children - one of which along with grandson is present Medications Active Medications: Acetaminophen (Tylenol Tab*) 650 mg PO Q4H PRN PRN Reason: PAIN Last Admin: 03/13/18 11:12 Dose: 650 mg Albuterol/Ipratropium (Duoneb (Albuterol 2.5 Mg/Ipratropium 0.5 Mg)) 1 neb INH [id number] AWAKE PRN PRN Reason: SHORTNESS OF BREATH Aspirin (Aspirin 81 Mg Chew Tab*) 81 mg PO DAILY [facility] Last Admin: 03/13/18 08:43 Dose: 81 mg Fluoxetine HCl (Prozac Cap*) 20 mg PO DAILY [facility] Last Admin: 03/13/18 08:44 Dose: 20 mg Gabapentin (Neurontin Cap(*)) 200 mg PO QID [facility] Last Admin: 03/13/18 13:20 Dose: 200 mg Heparin Sodium (Porcine) (Heparin Vial(*)) 5,000 units SUBCUT Q8HR [facility] Last Admin: 03/13/18 13:20 Dose: 5,000 units Cefepime HCl (Maxipime 1 Gm In Dextrose Duplex (*)) 1 gm in 50 mls @ 100 mls/ hr IV Q12H [facility] Last Admin: 03/13/18 13:20 Dose: 100 mls/hr Piperacillin Sod/Tazobactam (Sod 3.375 gm/ Sodium Chloride) 100 mls @ 25 mls/ hr IVPB Q8H [facility] Nitroglycerin (Nitroglycerin Tab 0.4 Mg*) 0.4 mg SL Q5M PRN PRN Reason: ANGINA Pharmacy Consult (Zosyn Per Pharmacy*) 1 note FOLLOW UP .ZOSYN PER PHARMACY [facility] Verapamil HCl (Calan Sr Tab*) 120 mg PO DAILY [facility] Home Medications: Albuterol HFA INHALER* [Ventolin HFA Inhaler*] 1 puff INH Q4H PRN 03/12/18 [ History Confirmed 03/12/18] Aspirin 81 mg CHEW TAB* 81 mg PO DAILY 03/12/18 [History Confirmed 03/12/18] Carbamazepine [Carbatrol] 200 mg PO BID 03/12/18 [History Confirmed 03/12/18] Fluoxetine HCl [Prozac] 20 mg PO DAILY 03/12/18 [History Confirmed 03/12/18] Furosemide TAB* [Lasix TAB*] 20 mg PO DAILY 03/12/18 [History Confirmed 03/12/18 ] Gabapentin [Neurontin] 200 mg PO QID 03/12/18 [History Confirmed 03/12/18] Nitroglycerin TAB 0.4 MG* 0.4 mg SL Q5M PRN 03/12/18 [History Confirmed 03/12/18 ] Simvastatin TAB(NF) [Zocor 10 MG (NF)] 10 mg PO DAILY 03/12/18 [History Confirmed 03/12/18] Verapamil TAB* [Calan TAB*] 120 mg PO DAILY 03/12/18 [History Confirmed 03/13/18 ] Review of Systems - Measurements Intake and Output: Intake and Output Last 24 Hours 03/11/18 03/12/18 03/13/18 03/14/18 06:59 06:59 06:59 06:59 Intake Total 3802 Output Total 650 Balance 3152 Weight 183 lb 185 lb Intake: IV Fluids 2968 NS (0.9%) 1968 IVPB 714 ABX - CEFTRIAXONE 58 NS (0.9%) 656 Oral 120 Output: Urine 650 Other: # Bowel Movements 0 - Review of Systems Constitutional Symptoms: Positive: Weakness, Fatigue Dermatology: Negative: Rash, Skin Lesions HEENT: Negative: Change in Hearing, Vertigo Eyes: Negative: Change in Vision, Double Vision Thyroid: Negative: Cold Intolerance, Primary Hypothyroidism, Primary Hyperthyroidism Pulmonary: Positive: Cough, Sputum, Respiratory Distress, Shortness of Breath, COPD, Exercise Intolerance Negative: Hemoptysis, Asthma, Home Oxygen Cardiology: Positive: Shortness of Breath Negative: Palpitations, Swelling of Ankles, Peripheral Vascular Dis, Edema, Syncope, Claudication, Paroxysmal Nocturnal Dyspnea, Orthopnea Gastroenterology: Positive: Abdominal Pain, Anorexia Negative: Blood in Stools, Change in Bowel Habits Genital - Urinary: Negative: Dysuria, Hematuria Musculoskeletal: Negative: Joint Pain, Joint Stiffness Endocrinology: Positive: Obesity Negative: Polydipsia, Polyuria Hematologic/Lymphatic: Positive: Use of Antiplatelet Drugs Negative: Easy Brusing, Hx Leukemia, Hx Lymphoma, Use of Anticoagulant Neurology: Negative: Change in Speech, Change in Sphincter Function, Change in Walking Psychiatry: Negative: Unusual Anxiety, Suicidal Ideation Allergic/Immunologic: Negative: Hx HIV, Immunocompromise Review of Systems Statement: All other review of systems negative, unless stated above. Objective Vital Signs: Temp Pulse Resp BP Pulse Ox 98.9 F 85 24 125/72 96 03/13/18 12:17 03/13/18 12:17 03/13/18 13:20 03/13/18 12:17 03/13/18 12:17 Oxygen Devices in Use Now: Nasal Cannula Appearance: nad, pleasant Neck: NL Appearance and Movements; NL JVP, Trachea Midline, - - uncertain jvp Respiratory: Symmetrical Chest Expansion and Respiratory Effort, - - bilateral crackles Cardiovascular: - - RRR with frequent ectopy, no significant murmur Abdominal: NL Sounds; No Tenderness; No Distention, - - obese Extremities: No Edema, No Clubbing, Cyanosis Skin: No Rash or Ulcers Neurological: Alert and Oriented x 3 Laboratory Results: 03/13/18 05:42 03/13/18 05:43 INR (Anticoag Therapy) 1.04 (0.77-1.02) H 03/12/18 12:38 Total Bilirubin 0.40 mg/dL (0.2-1.0) 03/13/18 05:43 Direct Bilirubin 0.20 mg/dL (0.03-0.18) H 03/13/18 05:43 Indirect Bilirubin 0.2 mg/dL (0.3-1.0) L 03/13/18 05:43 AST 41 U/L (13-39) H 03/13/18 05:43 ALT 58 U/L (7-52) H 03/13/18 05:43 Alkaline Phosphatase 165 U/L (34-104) H 03/13/18 05:43 B-Natriuretic Peptide 1691 pg/mL (-100) H 03/12/18 12:38 Total Protein 6.1 g/dL (6.4-8.9) L 03/13/18 05:43 Albumin 3.3 g/dL (3.2-5.2) 03/13/18 05:43 Globulin 2.8 g/dL (2-4) 03/13/18 05:43 Albumin/Globulin Ratio 1.2 (1-3) 03/13/18 05:43 03/12/18 03/12/18 03/12/18 12:38 16:00 18:47 Troponin I 0.06 H* 0.05 H* 0.05 H* Diagnostic Imaging: ekg 12/14/2017: NSR PAC's, nonspecific st changes, aberrant conducted pac's vs. pvc's ekg 03/12/2018: NSR, non-specific st/t changes, incomplete RBBB pvcs, Repeat ekg similar except pac's also noted echo 03/13/2018: LVEF 55-60% basal to mid inferior wall hypokinesis, LA mod dilated, mild-mod TR wtih mild pHTN cxr 03/13/2018: COPD +/- interstitial edema Assessment/Plan In summary, Sangita Bates is an 82 year old woman admitted with a respiratory tract infection/sepsis and possible acalculous cholecystitis. Her breathing has worsened s/p IVF in the setting of HFpEF. She has a detectable troponin level with no evidence of a type 1 plaque disruption SC. - Continue aspirin and calcium channel florence - LFT's noted, would restart statin - Once infection under control, would keep I/o net negative as tolerated Thank you for allowing me to participate in the cardiovascular care of this patient. Please do not hesitate to contact me with questions or concerns.
[2018-03-13] MEDS: ZOSYN 3.375 GM Q8H per EXTENDED INFUSION IVPB SCH ×4 (15:22→23:43)
--- NOTE | 2018-03-13 15:39 | CONS ---
CC: [facility]; Catie Gardner NP, [place], [place], connected to the [facility] * SURGICAL CONSULTATION REPORT: DATE OF CONSULT: 03/13/18 HISTORY OF PRESENT ILLNESS: I was contacted by the hospitalist service to evaluate Ms. Bates, an 82-year-old female, who was up to [place] for vacation, who presented to the emergency room with a 3-day history of weakness, cough, and upper abdominal pain. The patient was admitted through the emergency room by the hospitalist service for concern of pneumonia. She had concern for right upper lobe infiltrate on x- ray. She had an elevated white blood cell count of 24 with left shift and she was admitted to the hospitalist service for this diagnosis and was started on antibiotics. Upon evaluation today, it was notable that the patient had right upper quadrant pain and she was sent for an ultrasound of the gallbladder, which showed some sludge in the gallbladder and no stones. It did show gallbladder wall thickening and pericholecystic fluid. The gallbladder was thick as 0.8 cm and surgical consultation was requested. The patient was in routine good health until about a week ago when she started suffering with a cough. This was persistent and dry, nonproductive. This was accompanied with abdominal pain almost all in the right upper quadrant 2 days ago. The patient has had decreased appetite. She denies any fevers or chills. She has not had any nausea. No change in bowel habits. The patient does not describe any similar symptoms; however, she does describe being offered a gallbladder removal surgery in the . This was due to an episode of what she said was "indigestion." She refused surgery and was well since then with regards to this. PAST MEDICAL HISTORY: The patient has a past medical history of COPD. She quit smoking about 4 years ago. Questionable coronary artery disease, trigeminal neuralgia, hypertension, hypercholesterolemia. PAST SURGICAL HISTORY: Appendectomy, hysterectomy, parathyroidectomy, and a tonsillectomy. MEDICATIONS: Medication list is reviewed. ALLERGIES: Reviewed. SOCIAL HISTORY: She quit smoking 4 years ago. Lives with her . She is traveling up from [place]. REVIEW OF SYSTEMS: Shortness of breath as described above. No fevers. Decreased appetite. No GI symptoms. No dysuria. No dark colored urine or light colored stools. No endocrine disorders. No bleeding or clotting disorders. PHYSICAL EXAM: Temperature 98.9. She has been afebrile since arrival. Heart rate 85, blood pressure 125/72, O2 sat 96% on oxygen with respiration rate of 18. She is alert and oriented x3, in no apparent distress. She is coughing throughout much of the history and physical exam today. Again, this is a nonproductive cough. Head, Ears, Eyes, Nose, and Throat: Sclerae anicteric. Mucous membranes are moist. Neck: No lymphadenopathy. Abdomen: Soft, mildly distended, tender on deep palpation in the right upper quadrant with fullness at this site. No rebound tenderness. No hernias noted. No CVA tenderness. Rectal exam is not performed. Extremities within normal limits. DIAGNOSTIC STUDIES/LAB DATA: The patient's labs show continued elevated white blood cell count of 22 down from 24, H and H 9.5/29 which has decreased from 42 last year when she presented to our emergency room. The patient's bilirubin is 0.4, which is within normal limits; elevated alk phos , which has been going down from 179 to 165. Troponins are listed as abnormal, but are on the low side. The patient underwent x-ray. This report was reviewed. She underwent an ultrasound of the gall bladder. This report was reviewed and again shows thickened gallbladder as described above. IMPRESSION AND PLAN: An 82-year-old female with history of chronic obstructive pulmonary disease, who presents with shortness of breath, fatigue, and abdominal pain, without any significant gastrointestinal symptoms other than decreased appetite, who may very well have infection of the gallbladder and the possibility of acalculous cholecystitis. I think, given her risk factors and the fact that she has shown some improvement since arrival, I think an antibiotic route would be best at this time. Additionally, I would like to get a HIDA scan for the possibility of ruling out cholecystitis. If it does show filling of the gallbladder, we can just treat her with the known diagnosis at this time, but I do believe this will show an obstructed cystic duct, in which case watchful waiting with antibiotics, admission, and close followup. If the patient improves, then we can look towards sending her home on a week of oral antibiotics and follow up with her doctors in [place] or she could follow up with us. If she worsens, we can consider percutaneous cholecystostomy versus laparoscopic cholecystectomy. I would recommend Cardiology evaluation provided she will require surgical intervention and we will continue to follow her with labs and the HIDA scan. [id number]/[id number] #: [id number] [facility] DIVISIONRashel
[2018-03-14] MEDS: Cefepime 1 GM in Dextrose(*) 1 GM/50 ML BAG IV SCH ×2 (00:04→13:11)
[2018-03-14] MEDS: Albuterol/Ipratropium NEB.SOL* Albuterol 2.5 MG/Ipratropium 0.5 MG 3 ML INH PRN (01:17)
[2018-03-14] MEDS: Heparin VIAL(*) 5000 UNITS/ML VIAL (FIVE THOUSAND) SUBCUT SCH ×3 (05:20→21:22)
[2018-03-14 06:55] LABS: Hematocrit 29 % (35-47); Hemoglobin 9.8 g/dl (12.0-16.0); Mean Corpuscular HGB Conc 34 g/dl (31-36); Mean Corpuscular Hemoglobin 29 pg (27-31); Mean Corpuscular Volume 85 fL (80-97); Mean Platelet Volume 7.3 um3 (7.4-10.4); Platelet Count 347 10^3/ul (150-450); Red Blood Count 3.44 10^6/ul (4.00-5.40); Red Cell Distribution Width 15 % (10.5-15); White Blood Count 19.2 10^3/ul (3.5-10.8)
[2018-03-14 07:10] LABS: EGFR Non-African American 75.1 (>60)
[2018-03-14 07:15] LABS: ABS Basophils 0 10^3/ul (0-0.2); ABS Eosinophils 0.1 10^3/ul (0-0.6); ABS Lymphocytes 1.3 10^3/ul (1.0-4.8); ABS Monocytes 2.1 10^3/ul (0-0.8); ABS Neutrophils 15.7 10^3/ul (1.5-7.7)
[2018-03-14 07:18] LABS: ABS Basophils 0 10^3/ul (0-0.2); ABS Neutrophils 14.2 10^3/ul (1.5-7.7); Monocytes % 3 % (0-7)
[2018-03-14] MEDS: ZOSYN 3.375 GM Q8H per EXTENDED INFUSION IVPB SCH ×4 (07:44→16:35)
[2018-03-14] MEDS: Aspirin 81 mg CHEW TAB* 81 MG TAB.CHEW PO SCH (08:45)
[2018-03-14] MEDS: Gabapentin CAP(*) 100 MG PO SCH ×4 (08:45→21:21)
[2018-03-14] MEDS: Verapamil SR TAB* 240 MG PO SCH (08:47)
[2018-03-14] MEDS: FLUoxetine CAP* 20 MG PO SCH (08:47)
--- NOTE | 2018-03-14 13:33 | RAD ---
Indication: Acalculous cholecystitis. Hepatobiliary scan was performed after intravenous injection of 5.8 mCi of technetium 99m mebrofenin. There is homogeneous distribution of the radiotracer and prompt uptake by the hepatocytes. There is excretion into the biliary system at 10 minutes. Reflux into the gallbladder at 15 minutes is noted. Radionuclide in the intestine is noted at 10 to 15 minutes. IMPRESSION: Normal hepatobiliary scan.
--- NOTE | 2018-03-14 16:30 | PN ---
Subjective Date of Service: 03/14/18 Interval History: Ms. Bates reports that she continues to have right sided upper abdomen/flank/ rib pain. She has a nonproductive cough. She denies chest pain. She denies nausea but feels bloated and has a poor appetite. Her last bowel movement was this morning. Objective Active Medications: Acetaminophen (Tylenol Tab*) 650 mg PO Q4H PRN Albuterol/Ipratropium (Duoneb (Albuterol 2.5 Mg/Ipratropium 0.5 Mg)) 1 neb INH RT.[id number] AWAKE PRN Aspirin (Aspirin 81 Mg Chew Tab*) 81 mg PO DAILY [facility] Fluoxetine HCl (Prozac Cap*) 20 mg PO DAILY [facility] Gabapentin (Neurontin Cap(*)) 200 mg PO QID [facility] Heparin Sodium (Porcine) (Heparin Vial(*)) 5,000 units SUBCUT Q8HR [facility] Cefepime HCl (Maxipime 1 Gm In Dextrose Duplex (*)) 1 gm in 50 mls @ 100 mls/ hr IV Q12H [facility] Piperacillin Sod/Tazobactam (Sod 3.375 gm/ Sodium Chloride) 100 mls @ 25 mls/ hr IVPB Q8H [facility] Nitroglycerin (Nitroglycerin Tab 0.4 Mg*) 0.4 mg SL Q5M PRN Pharmacy Consult (Zosyn Per Pharmacy*) 1 note FOLLOW UP .ZOSYN PER PHARMACY [facility] Verapamil HCl (Calan Sr Tab*) 120 mg PO DAILY [facility] Vital Signs: Temp Pulse Resp BP Pulse Ox 98.2 F 90 17 120/63 93 03/14/18 11:23 03/14/18 11:23 03/14/18 13:11 03/14/18 11:23 03/14/18 11:23 Oxygen Devices in Use Now: Nasal Cannula Appearance: Female sitting up on edge of bed in NAD Eyes: No Scleral Icterus Respiratory: Symmetrical Chest Expansion and Respiratory Effort, - - Minimal wheeze, good aeration Cardiovascular: NL Sounds; No Murmurs; No JVD, No Edema Abdominal: NL Sounds; No Tenderness; No Distention Extremities: No Edema Skin: No Rash or Ulcers Neurological: Alert and Oriented x 3, NL Muscle Strength and Tone Nutrition: Taking PO's Result Diagrams: 03/14/18 06:29 03/14/18 06:32 Assess/Plan/Problems-Billing Assessment: Ms. Bates is an 82 yo female with PMH of COPD, tobacco abuse (quit 4 years ago), trigeminal neuralgia, CAD who lives in [place] who presented with 3 days of weakness, cough and right sharp chest pain admitted with sepsis thought to be secondary to right upper lung pneumonia, now found to have a UTI and possible acute cholecystitis. - Patient Problems (1) Sepsis Comment: - SIRS criteria x 2 and new O2 requirement. - Resolving. Patient has a possible pneumonia and UTI. - Blood cx with NGTD. (2) Pneumonia Comment: - Afebrile, leukocytosis improving. - Report of cough, hypoxia and weakness with chest xray showing "appears to be COPD with chronic interstitial disease. Possibility of a right upper lobe infiltrate is not excluded." Procalcitonin 0.2, CRP 308. Strep pneumo and legionella antigen negative. - Will continue to try to wean supplemental O2, on 3L NC. - Switch to ceftriaxone and azithromycin. (3) Right upper quadrant pain Comment: - Cholecystitis ruled out. - Patient reports rib pain did not start until after a fall at home, check rib xray now. (4) Elevated troponin Comment: - Asymptomatic. Suspect demand ischemia in setting of acute illness. - Troponins 0.05 x3. Abnormal EKG with noted ST depressions V2-V5. - Echo shows intact EF but multiple areas of hypokinesis. BNP 1691 on arrival. - Appreciate cardiology input, no intervention indicated. Continue lasix and statin. (5) UTI (urinary tract infection) Comment: - Urine culture with ecoli, pansensitive. - Continue ceftriaxone. (6) Transaminitis Comment: - LFTS mildly elevated and essentially unchanged. Liver u/s which shows "hepatomegaly with fatty liver infiltration of the liver. Gallbaldder wall thickening with small amount pericholecystic fluid. Differential includes acalculous cholecystitis in the correct clinical setting". However, HIDA scan normal. - Appreciate surgery consultation. (7) CAD (coronary artery disease) Comment: - Asymptomatic. - Distant hx of MS 6-8 years ago? Follows with a [facility] yearly in which she states she has been stable. (8) Hyponatremia Comment: - Mild, essentially unchanged. (9) COPD (chronic obstructive pulmonary disease) Comment: - Minimal wheezing noted, on 3L NC - Continue neb treatments (10) HTN (hypertension) Comment: - Controlled. Continue Verapimil. Hold lasix. (11) Trigeminal neuralgia Comment: - Dx approx 1 year ago. continue Gapepentin, hold carbamazepine in the setting of elevated LFTS. (12) DVT prophylaxis Comment: - HSQ Status and Disposition: Inpatient. Anticipate discharge to home when medically stable.
--- NOTE | 2018-03-14 18:39 | RAD ---
Indication: Right rib injury. Status post fall. 3 views of the right ribs are reviewed. Dual-energy PA views were also obtained. No fracture is identified. Chronic interstitial disease is noted. No pneumothorax is identified. Pleural thickening is noted in the right hemithorax. No pneumothorax is noted. Chronic interstitial disease is noted. IMPRESSION: No fracture of the right ribs is noted.
--- NOTE | 2018-03-14 19:06 | RAD ---
Indication: Abdominal pain and distention. Flat plate of the abdomen demonstrates no free air. Air distended colon is noted. No dilated loops of bowel are noted. Patient is status post kyphoplasty L1 and L2. Bowel gas pattern is unremarkable. IMPRESSION: Kyphoplasty at L1-L2. Bowel gas pattern is unremarkable.
[2018-03-15] MEDS: Albuterol/Ipratropium NEB.SOL* Albuterol 2.5 MG/Ipratropium 0.5 MG 3 ML INH PRN ×2 (02:40→18:04)
[2018-03-15] MEDS: Heparin VIAL(*) 5000 UNITS/ML VIAL (FIVE THOUSAND) SUBCUT SCH ×2 (05:49→13:36)
[2018-03-15 06:01] LABS: Hematocrit 29 % (35-47); Hemoglobin 9.8 g/dl (12.0-16.0); Mean Corpuscular HGB Conc 33 g/dl (31-36); Mean Corpuscular Hemoglobin 28 pg (27-31); Mean Corpuscular Volume 84 fL (80-97); Mean Platelet Volume 6.7 um3 (7.4-10.4); Platelet Count 368 10^3/ul (150-450); Red Blood Count 3.48 10^6/ul (4.00-5.40); Red Cell Distribution Width 14 % (10.5-15); White Blood Count 19.4 10^3/ul (3.5-10.8)
[2018-03-15 06:21] LABS: EGFR Non-African American 76.3 (>60)
[2018-03-15 06:34] LABS: ABS Basophils 0 10^3/ul (0-0.2); ABS Neutrophils 14.9 10^3/ul (1.5-7.7); ABS Neutrophils 16.1 10^3/ul (1.5-7.7); Monocytes % 5 % (0-7)
[2018-03-15] MEDS: cefTRIAXone(*) 1 GM in NS 0.9% 50 ML* 50 ML IVPB SCH (09:55)
[2018-03-15] MEDS: Furosemide TAB* 20 MG PO SCH (10:02)
[2018-03-15] MEDS: FLUoxetine CAP* 20 MG PO SCH (10:03)
[2018-03-15] MEDS: Atorvastatin* 10 MG TAB PO SCH (10:05)
[2018-03-15] MEDS: Verapamil SR TAB* 240 MG PO SCH (10:05)
[2018-03-15] MEDS: Aspirin 81 mg CHEW TAB* 81 MG TAB.CHEW PO SCH (10:07)
[2018-03-15] MEDS: Azithromycin TAB* 250 MG PO SCH (10:07)
[2018-03-15] MEDS: Gabapentin CAP(*) 100 MG PO SCH ×4 (10:07→20:28)
[2018-03-15] MEDS: traMADol TAB* 50 MG PO PRN ×2 (11:38→20:31)
--- NOTE | 2018-03-15 12:11 | PN ---
Progress Note - Progress Note Date of Service: 03/15/18 Note: Surgery Progress: S: no sig abd pain; seems to have shifted more to the Right chest wall (had a fall at home pre-hospital). Carlos diet, though not much appetite. Had one passing episode of nausea this a.m. Passing flatus. Has had a few dark loose stools ( guaiac pend). O: Vital Signs - 8 hr 03/15/18 03/15/18 03/15/18 07:52 08:00 10:07 Temperature 98.0 F Pulse Rate 80 Respiratory 16 16 18 Rate Blood Pressure 111/44 (mmHg) O2 Sat by Pulse 98 Oximetry 03/15/18 03/15/18 11:38 11:48 Temperature Pulse Rate Respiratory 18 18 Rate Blood Pressure (mmHg) O2 Sat by Pulse Oximetry Intake and Output Last 24 Hours 03/13/18 03/14/18 03/15/18 03/16/18 06:59 06:59 06:59 06:59 Intake Total 3802 1654 850 540 Output Total 650 2900 500 400 Balance 3152 -1246 350 140 Weight 183 lb 188 lb 11.2 oz 187 lb 4.8 oz Intake: IV Fluids 2968 498 100 ABX - CEFEPIME 20 ABX - ZOSYN 232 100 NS (0.9%) 1968 246 IVPB 714 176 60 ABX - CEFEPIME 58 ABX - CEFTRIAXONE 58 ABX - ZOSYN 118 Antibiotic 60 NS (0.9%) 656 Oral 120 980 750 480 Output: Urine 650 2900 500 400 Other: # Bowel Movements 0 1 1 1 Estimated Stool Amount Medium Medium Medium # Voids 1 1 Gen: WN/obese; NAD Heart: reg Lungs: clear ant Abd: +BS; soft; no sig tenderness until I reach to inferior costal margin where tenderness continues up along the lateral chest wall. Lab: Laboratory Tests 03/12/18 03/15/18 03/15/18 12:38 05:51 05:51 WBC 19.4 H Hgb 9.8 L Total Bilirubin 0.40 AST 49 H ALT 79 H Alkaline Phosphatase 142 H C-Reactive Protein 308.32 H 154.36 H Exam Date: 03/14/18 1412 ADM Status: ADM IN Order Information: NM HEPATOBIL VISUAL SCAN-HIDA Accession Number: [id number] CPT: 59871 Indication: Acalculous cholecystitis. Hepatobiliary scan was performed after intravenous injection of 5.8 mCi of technetium 99m mebrofenin. There is homogeneous distribution of the radiotracer and prompt uptake by the hepatocytes. There is excretion into the biliary system at 10 minutes. Reflux into the gallbladder at 15 minutes is noted. Radionuclide in the intestine is noted at 10 to 15 minutes. IMPRESSION: Normal hepatobiliary scan. <Electronically signed by Brionna Bailey MD in OV> 03/14/18 1330 A: acalcuous cholecystitis, improved/resolved (more likely RUQ pain 2/2 to recent Right chest wall trauma) P: will sign off; recall prn; discussed w/ Bailee Bustos NP.
--- NOTE | 2018-03-15 18:53 | PN ---
Subjective Date of Service: 03/15/18 Interval History: Ms. Bates reports that she is feeling a bit better but continues to be dyspneic with exertion. She denies chest pain. She continues to have right sided pain but notes in her upper ribs under her right armpit and across her ribs and upper abdomen in a few discrete areas. She does report a fall at home on to the right side prior to admission and has several bandaids on her right arm. She denies nausea or abdominal pain otherwise but reports that she has a poor appetite. She noted black stool today. She is up to date on her colonoscopies but was told at her last one that she would never need another one due to lack of prior findings and her advanced age. Objective Active Medications: Acetaminophen (Tylenol Tab*) 650 mg PO Q4H PRN Albuterol/Ipratropium (Duoneb (Albuterol 2.5 Mg/Ipratropium 0.5 Mg)) 1 neb INH [id number] AWAKE PRN Aspirin (Aspirin 81 Mg Chew Tab*) 81 mg PO DAILY CAROL Atorvastatin Calcium (Lipitor*) 5 mg PO DAILY CAROL Azithromycin (Zithromax Tab*) 250 mg PO DAILY [facility]OL Fluoxetine HCl (Prozac Cap*) 20 mg PO DAILY CAR[facility] Furosemide (Lasix Tab*) 20 mg PO DAILY CAROL Gabapentin (Neurontin Cap(*)) 200 mg PO QID CAROL Ceftriaxone Sodium 1 gm/ (Sodium Chloride) 50 mls @ 200 mls/hr IVPB Q24H CAROL Nitroglycerin (Nitroglycerin Tab 0.4 Mg*) 0.4 mg SL Q5M PRN Tramadol HCl (Ultram*) 50 mg PO Q6H PRN Verapamil HCl (Calan Sr Tab*) 120 mg PO DAILY [facility] Vital Signs: Temp Pulse Resp BP Pulse Ox 97.3 F 69 18 122/56 98 03/15/18 15:20 03/15/18 18:05 03/15/18 18:05 03/15/18 15:20 03/15/18 18:05 Oxygen Devices in Use Now: Nasal Cannula Appearance: Female sitting up on edge of bed in NAD Eyes: No Scleral Icterus Ears/Nose/Mouth/Throat: Mucous Membranes Moist Respiratory: Symmetrical Chest Expansion and Respiratory Effort, - - Minimal wheeze in bases, good aeration Cardiovascular: NL Sounds; No Murmurs; No JVD, No Edema Abdominal: - - Tenderness in right upper quadrant, but also up around right ribs and right armpit. BS +, soft. Extremities: No Edema Skin: No Rash or Ulcers Neurological: Alert and Oriented x 3, NL Muscle Strength and Tone Nutrition: Taking PO's Result Diagrams: 03/15/18 05:51 03/15/18 05:51 Assess/Plan/Problems-Billing Assessment: Ms. Bates is an 82 yo female with PMH of COPD, tobacco abuse (quit 4 years ago), trigeminal neuralgia, CAD who lives in [place] who presented with 3 days of weakness, cough and right sharp chest pain admitted with sepsis thought to be secondary to right upper lung pneumonia, now found to have a UTI and possible acute cholecystitis. - Patient Problems (1) Sepsis Comment: - SIRS criteria x 2 and new O2 requirement. - Resolving. Patient has a possible pneumonia and UTI. - Blood cx with NGTD. (2) Pneumonia Comment: - Afebrile, leukocytosis improving. - Report of cough, hypoxia and weakness with chest xray showing "appears to be COPD with chronic interstitial disease. Possibility of a right upper lobe infiltrate is not excluded." Procalcitonin 0.2, CRP 308. Strep pneumo and legionella antigen negative. - Will continue to try to wean supplemental O2, on 2L NC. - Continue ceftriaxone and azithromycin. (3) Right upper quadrant pain Comment: - Cholecystitis ruled out. - No rib fracture, suspect pain related to fall at home prior to admission. (4) Anemia Comment: - ? GI bleed with dark stools, stool occult blood positive. ? Stress ulcer from acute illness. - Patient up to date on colonoscopies. - Plan to recheck H/H in AM. D/C hep SQ and aspirin. Start omeprazole. - If H/H stable, patient will need outpatient endoscopy when pneumonia resolves for further assessment. (5) Elevated troponin Comment: - Asymptomatic. Suspect demand ischemia in setting of acute illness. - Troponins 0.05 x3. Abnormal EKG with noted ST depressions V2-V5. - Echo shows intact EF but multiple areas of hypokinesis. BNP 1691 on arrival. - Appreciate cardiology input, no intervention indicated. Continue lasix and statin. (6) UTI (urinary tract infection) Comment: - Urine culture with ecoli, pansensitive. - Continue ceftriaxone. (7) Transaminitis Comment: - LFTS mildly elevated and essentially unchanged. Liver u/s which shows "hepatomegaly with fatty liver infiltration of the liver. Gallbaldder wall thickening with small amount pericholecystic fluid. Differential includes acalculous cholecystitis in the correct clinical setting". However, HIDA scan normal. - Appreciate surgery consultation. (8) CAD (coronary artery disease) Comment: - Asymptomatic. - Distant hx of [place] 6-8 years ago? Follows with a [employer] yearly in which she states she has been stable. (9) Hyponatremia Comment: - Mild, essentially unchanged. (10) COPD (chronic obstructive pulmonary disease) Comment: - Minimal wheezing noted, on 3L NC - Continue neb treatments (11) HTN (hypertension) Comment: - Controlled. Continue Verapimil. Hold lasix. (12) Trigeminal neuralgia Comment: - Dx approx 1 year ago. continue Gapepentin, hold carbamazepine in the setting of elevated LFTS. (13) DVT prophylaxis Comment: - HSQ Status and Disposition: Inpatient. Anticipate discharge to home when medically stable.
[2018-03-15] MEDS: Omeprazole CAP* 20 MG PO SCH (20:28)
[2018-03-16 05:31] LABS: Hematocrit 29 % (35-47); Hemoglobin 9.8 g/dl (12.0-16.0); Mean Corpuscular HGB Conc 34 g/dl (31-36); Mean Corpuscular Hemoglobin 29 pg (27-31); Mean Corpuscular Volume 84 fL (80-97); Mean Platelet Volume 6.8 um3 (7.4-10.4); Platelet Count 346 10^3/ul (150-450); Red Blood Count 3.41 10^6/ul (4.00-5.40); Red Cell Distribution Width 15 % (10.5-15)
[2018-03-16 05:33] LABS: ABS Basophils 0.1 10^3/ul (0-0.2); ABS Eosinophils 0.4 10^3/ul (0-0.6); ABS Lymphocytes 1.8 10^3/ul (1.0-4.8); ABS Monocytes 1.9 10^3/ul (0-0.8); ABS Neutrophils 15.8 10^3/ul (1.5-7.7); ABS Nucleated RBC 0 10^3/ul
[2018-03-16 05:55] LABS: ABS Basophils 0 10^3/ul (0-0.2); ABS Neutrophils 12.2 10^3/ul (1.5-7.7); Monocytes % 9 % (0-7)
--- NOTE | 2018-03-16 06:59 | PN ---
Subjective Date of Service: 03/16/18 Interval History: Ms. Bates is feeling somewhat better today. She continues to have pain along her right side with some minimal improvement. She denies chest pain. She continues to feel dyspneic on exertion and requires O2 with ambulation. She denies nausea or vomiting. She had a better appetite this morning. She has not had a bowel movement yet today. Objective Active Medications: Acetaminophen (Tylenol Tab*) 650 mg PO Q4H PRN Albuterol/Ipratropium (Duoneb (Albuterol 2.5 Mg/Ipratropium 0.5 Mg)) 1 neb INH [id number] AWAKE PRN Atorvastatin Calcium (Lipitor*) 5 mg PO DAILY CAROL Azithromycin (Zithromax Tab*) 250 mg PO DAILY CAROL Fluoxetine HCl (Prozac Cap*) 20 mg PO DAILY CAROL Furosemide (Lasix Tab*) 20 mg PO DAILY CAROL Gabapentin (Neurontin Cap(*)) 200 mg PO QID CAROL Ceftriaxone Sodium 1 gm/ (Sodium Chloride) 50 mls @ 200 mls/hr IVPB Q24H CAROL Nitroglycerin (Nitroglycerin Tab 0.4 Mg*) 0.4 mg SL Q5M PRN Omeprazole (Prilosec Cap*) 20 mg PO BID CAROL Tramadol HCl (Ultram*) 50 mg PO Q6H PRN Verapamil HCl (Calan Sr Tab*) 120 mg PO DAILY [facility] Vital Signs: Temp Pulse Resp BP Pulse Ox 97.6 F 84 18 139/53 99 03/16/18 04:00 03/16/18 04:00 03/16/18 09:08 03/16/18 04:00 03/16/18 04:00 Oxygen Devices in Use Now: Nasal Cannula Appearance: Female sitting up in bed in NAD Eyes: No Scleral Icterus Ears/Nose/Mouth/Throat: Mucous Membranes Moist Neck: Trachea Midline Respiratory: Symmetrical Chest Expansion and Respiratory Effort, - - Inspiratory crackles in base, otherwise clear Cardiovascular: No Edema Abdominal: NL Sounds; No Tenderness; No Distention Lymphatic: No Cervical Adenopathy Extremities: No Edema Skin: No Rash or Ulcers Neurological: Alert and Oriented x 3, NL Muscle Strength and Tone Nutrition: Taking PO's Result Diagrams: 03/16/18 05:23 03/16/18 05:23 Assess/Plan/Problems-Billing Assessment: Ms. Bates is an 82 yo female with PMH of COPD, tobacco abuse (quit 4 years ago), trigeminal neuralgia, CAD who lives in [place] who presented with 3 days of weakness, cough and right sharp chest pain admitted with sepsis thought to be secondary to right upper lung pneumonia, now found to have a UTI and suspected upper GI bleed. - Patient Problems (1) Sepsis Comment: - SIRS criteria x 2 and new O2 requirement. - Resolving. Patient has pneumonia and UTI. - Blood cx with NGTD. (2) Pneumonia Comment: - Afebrile, leukocytosis improving. - Report of cough and weakness with chest xray showing "appears to be COPD with chronic interstitial disease. Possibility of a right upper lobe infiltrate is not excluded." Procalcitonin 0.2, CRP 308. Strep pneumo and legionella antigen negative. - Will continue to try to wean supplemental O2, on 2L NC. - Continue ceftriaxone and azithromycin. (3) Right upper quadrant pain Comment: - Cholecystitis ruled out. - No rib fracture, suspect pain related to fall at home prior to admission. (4) Anemia Comment: - Stable. Stool occult blood positive. ? Stress ulcer with upper GI bleed from acute illness. - Patient up to date on colonoscopies. - Monitor H/H D/C hep SQ and aspirin. Continue omeprazole. - If H/H stable, patient will need outpatient endoscopy when pneumonia resolves for further assessment. (5) Elevated troponin Comment: - Asymptomatic. Suspect demand ischemia in setting of acute illness. - Troponins 0.05 x3. Abnormal EKG with noted ST depressions V2-V5. - Echo shows intact EF but multiple areas of hypokinesis. BNP 1691 on arrival. - Appreciate cardiology input, no intervention indicated. Continue lasix and statin. (6) UTI (urinary tract infection) Comment: - Urine culture with ecoli, pansensitive. - Continue ceftriaxone. (7) Transaminitis Comment: - LFTS mildly elevated and essentially unchanged. Liver u/s which shows "hepatomegaly with fatty liver infiltration of the liver. Gallbaldder wall thickening with small amount pericholecystic fluid. Differential includes acalculous cholecystitis in the correct clinical setting". However, HIDA scan normal. - Appreciate surgery consultation. (8) CAD (coronary artery disease) Comment: - Asymptomatic. - Distant hx of [place] 6-8 years ago? Follows with a [employer] yearly in which she states she has been stable. (9) Hyponatremia Comment: - Mild, essentially unchanged. (10) COPD (chronic obstructive pulmonary disease) Comment: - Minimal wheezing noted, on 3L NC - Continue neb treatments (11) HTN (hypertension) Comment: - Controlled. Continue Verapimil. Hold lasix. (12) Trigeminal neuralgia Comment: - Dx approx 1 year ago. continue Gapepentin, hold carbamazepine in the setting of elevated LFTS. (13) DVT prophylaxis Comment: - HSQ (14) Full code status Comment: Status and Disposition: Inpatient. Anticipate discharge to home when medically stable.
[2018-03-16 07:18] LABS: EGFR Non-African American 81.5 (>60)
[2018-03-16] MEDS: Atorvastatin* 10 MG TAB PO SCH (09:08)
[2018-03-16] MEDS: Gabapentin CAP(*) 100 MG PO SCH ×4 (09:08→21:51)
[2018-03-16] MEDS: Furosemide TAB* 20 MG PO SCH (09:08)
[2018-03-16] MEDS: Azithromycin TAB* 250 MG PO SCH (09:08)
[2018-03-16] MEDS: FLUoxetine CAP* 20 MG PO SCH (09:08)
[2018-03-16] MEDS: Omeprazole CAP* 20 MG PO SCH ×2 (09:09→21:50)
[2018-03-16] MEDS: Verapamil SR TAB* 240 MG PO SCH (09:09)
[2018-03-16] MEDS: cefTRIAXone(*) 1 GM in NS 0.9% 50 ML* 50 ML IVPB SCH (11:41)
[2018-03-16] MEDS: Albuterol/Ipratropium NEB.SOL* Albuterol 2.5 MG/Ipratropium 0.5 MG 3 ML INH PRN ×2 (11:53→19:52)
[2018-03-16] MEDS: traMADol TAB* 50 MG PO PRN (21:50)
[2018-03-17 06:01] LABS: Hematocrit 29 % (35-47); Hemoglobin 9.8 g/dl (12.0-16.0); Mean Corpuscular HGB Conc 34 g/dl (31-36); Mean Corpuscular Hemoglobin 28 pg (27-31); Mean Corpuscular Volume 84 fL (80-97); Mean Platelet Volume 6.7 um3 (7.4-10.4); Platelet Count 354 10^3/ul (150-450); Red Blood Count 3.48 10^6/ul (4.00-5.40); Red Cell Distribution Width 15 % (10.5-15); White Blood Count 19.2 10^3/ul (3.5-10.8)
[2018-03-17 06:13] LABS: ABS Basophils 0.1 10^3/ul (0-0.2); ABS Eosinophils 0.3 10^3/ul (0-0.6); ABS Lymphocytes 1.3 10^3/ul (1.0-4.8); ABS Monocytes 1.3 10^3/ul (0-0.8); ABS Neutrophils 16.2 10^3/ul (1.5-7.7); ABS Nucleated RBC 0 10^3/ul
[2018-03-17 06:20] LABS: EGFR Non-African American 84.3 (>60)
[2018-03-17 07:23] LABS: ABS Basophils 0 10^3/ul (0-0.2); ABS Neutrophils 13.4 10^3/ul (1.5-7.7); Monocytes % 7 % (0-7)
--- NOTE | 2018-03-17 08:23 | PN ---
Subjective Date of Service: 03/17/18 Interval History: Ms. Bates reports that she is feeling better. She continues to have a harsh cough but is not requiring oxygen with ambulation. She denies chest pain, nausea, or abdominal pain. She had a bowel movement today but did not look at it so cannot report its character. She denies lightheadedness. Objective Active Medications: Acetaminophen (Tylenol Tab*) 650 mg PO Q4H PRN Albuterol/Ipratropium (Duoneb (Albuterol 2.5 Mg/Ipratropium 0.5 Mg)) 1 neb INH [id number] AWAKE PRN Atorvastatin Calcium (Lipitor*) 5 mg PO DAILY CAROL Azithromycin (Zithromax Tab*) 250 mg PO DAILY CAROL Fluoxetine HCl (Prozac Cap*) 20 mg PO DAILY CAROL Furosemide (Lasix Tab*) 20 mg PO DAILY CAROL Gabapentin (Neurontin Cap(*)) 200 mg PO QID CAROL Ceftriaxone Sodium 1 gm/ (Sodium Chloride) 50 mls @ 200 mls/hr IVPB Q24H CAROL Nitroglycerin (Nitroglycerin Tab 0.4 Mg*) 0.4 mg SL Q5M PRN Omeprazole (Prilosec Cap*) 20 mg PO BID CAROL Tramadol HCl (Ultram*) 50 mg PO Q6H PRN Verapamil HCl (Calan Sr Tab*) 120 mg PO DAILY [facility] Vital Signs: Temp Pulse Resp BP Pulse Ox 98.3 F 129 18 110/52 97 03/17/18 03:18 03/17/18 03:18 03/17/18 07:32 03/17/18 03:18 03/17/18 03:18 Oxygen Devices in Use Now: None Appearance: Female sitting up in chair reading the paper Eyes: No Scleral Icterus Neck: Trachea Midline Respiratory: Symmetrical Chest Expansion and Respiratory Effort, - - Inspiratory crackles in bases Cardiovascular: NL Sounds; No Murmurs; No JVD Abdominal: NL Sounds; No Tenderness; No Distention Extremities: No Edema Skin: No Rash or Ulcers Neurological: Alert and Oriented x 3, NL Muscle Strength and Tone Nutrition: Taking PO's Result Diagrams: 03/17/18 05:35 03/17/18 05:35 Assess/Plan/Problems-Billing Assessment: Ms. Bates is an 82 yo female with PMH of COPD, tobacco abuse (quit 4 years ago), trigeminal neuralgia, CAD who lives in [place] who presented with 3 days of weakness, cough and right sharp chest pain admitted with sepsis thought to be secondary to right upper lung pneumonia, now found to have a UTI and suspected upper GI bleed. - Patient Problems (1) Sepsis Comment: - Resolved. Patient has pneumonia and UTI. - Blood cx with NGTD. (2) Pneumonia Comment: - Afebrile, leukocytosis improving. Off O2. - Report of cough and weakness with chest xray showing "appears to be COPD with chronic interstitial disease. Possibility of a right upper lobe infiltrate is not excluded." Procalcitonin 0.2, CRP 308. Strep pneumo and legionella antigen negative. - Complete course of azithromycin. (3) Right upper quadrant pain Comment: - Cholecystitis ruled out. - No rib fracture, suspect pain related to fall at home prior to admission. (4) Anemia Comment: - Stable. Stool occult blood positive. ? Stress ulcer with upper GI bleed from acute illness. - Patient up to date on colonoscopies. - Monitor H/H D/C hep SQ and aspirin. Continue omeprazole. - If H/H stable, patient will need outpatient endoscopy when pneumonia resolves for further assessment. (5) Elevated troponin Comment: - Asymptomatic. Suspect demand ischemia in setting of acute illness. - Troponins 0.05 x3. Abnormal EKG with noted ST depressions V2-V5. - Echo shows intact EF but multiple areas of hypokinesis. BNP 1691 on arrival. - Appreciate cardiology input, no intervention indicated. Continue lasix and statin. (6) UTI (urinary tract infection) Comment: - Urine culture with ecoli, pansensitive. - Completed course of ceftriaxone. (7) Transaminitis Comment: - LFTS mildly elevated and essentially unchanged. Liver u/s which shows "hepatomegaly with fatty liver infiltration of the liver. Gallbaldder wall thickening with small amount pericholecystic fluid. Differential includes acalculous cholecystitis in the correct clinical setting". However, HIDA scan normal. - Appreciate surgery consultation. (8) CAD (coronary artery disease) Comment: - Asymptomatic. - Distant hx of [place] 6-8 years ago? Follows with a [employer] yearly in which she states she has been stable. (9) Hyponatremia Comment: - Mild, essentially unchanged. (10) COPD (chronic obstructive pulmonary disease) Comment: - No evidence of exacerbation. - Continue neb treatments (11) HTN (hypertension) Comment: - Controlled. Continue Verapimil. Resume lasix. (12) Trigeminal neuralgia Comment: - Dx approx 1 year ago. continue Gapepentin, hold carbamazepine in the setting of elevated LFTS. (13) DVT prophylaxis Comment: (14) Full code status Comment: Status and Disposition: Inpatient. Discharge to home.
[2018-03-17] MEDS: Omeprazole CAP* 20 MG PO SCH (09:00)
[2018-03-17] MEDS: Furosemide TAB* 20 MG PO SCH (09:00)
[2018-03-17] MEDS: Azithromycin TAB* 250 MG PO SCH (09:00)
[2018-03-17] MEDS: FLUoxetine CAP* 20 MG PO SCH (09:00)
[2018-03-17] MEDS: Gabapentin CAP(*) 100 MG PO SCH (09:01)
[2018-03-17] MEDS: Verapamil SR TAB* 240 MG PO SCH (09:01)
[2018-03-17] MEDS: cefTRIAXone(*) 1 GM in NS 0.9% 50 ML* 50 ML IVPB SCH (09:02)
[2018-03-17] MEDS: Atorvastatin* 10 MG TAB PO SCH (09:02)
[2018-03-17 10:46] VITALS: BP 123/57
--- NOTE | 2018-03-17 15:00 | DS ---
HOSPITAL MEDICINE DISCHARGE SUMMARY: DATE OF ADMISSION: 03/12/18. DATE OF DISCHARGE: 03/17/18. ATTENDING PHYSICIAN: Dr. Rneato Wallace * (dictation provided by Kira Bustos NP). PRIMARY CARE PROVIDER: Catie Gardner NP at [facility] in [place], [place]. PRIMARY DIAGNOSES: 1. Sepsis. 2. Pneumonia. 3. Urinary tract infection. 4. Transaminitis. 5. Acute blood loss anemia secondary to suspected upper gastrointestinal bleed. SECONDARY DIAGNOSES: 1. History of chronic obstructive pulmonary disease. 2. History of tobacco abuse, quit 4 years ago. 3. History of trigeminal neuralgia. 4. History of suspected coronary artery disease with question of a myocardial infarction. 5. Hypertension. 6. Hyperlipidemia. 7. Depression. MEDICATIONS AT THE TIME OF DISCHARGE: 1. Verapamil 120 mg p.o. daily. 2. Simvastatin 10 mg p.o. daily. 3. Nitroglycerin tab p.r.n. 4. Gabapentin 200 mg p.o. q.i.d. 5. Albuterol inhaler one puff inhaled q.4 hours p.r.n. 6. Furosemide 20 mg p.o. daily. 7. Fluoxetine 20 mg p.o. daily. 8. Carbamazepine 200 mg p.o. b.i.d. 9. Tramadol 50 mg p.o. q.6 hours p.r.n. 10. Omeprazole 20 mg p.o. b.i.d. 11. Azithromycin 250 mg p.o. daily. The patient has been instructed to hold aspirin and avoid ibuprofen. HOSPITAL COURSE: Ms. Bates is an 82-year-old female with a past medical history as noted above, who presented to the hospital on 03/12/18 with concern for weakness, cough and pleuritic chest pain. Please see the dictated H and P from Gege Lyle NP from complete details. In brief, the patient had arrived to [place] about 6 days prior and was feeling quite well. About three days prior to admission, she developed weakness and cough with sputum production , shortness of breath, and right-sided chest pain. The patient was initially evaluated at [facility], where she was noted to have an O2 saturation of 90 % on room air and a chest x-ray that showed concern for a possible right upper lobe infiltrate. She also had a leukocytosis with a white count of 23.8 and elevated troponin of 0.[address] depressions in the V4 through V6 leads. Ms. Bates was admitted to the hospital out of concern for pneumonia. She had a repeat chest x-ray on 03/13/18, which did not demonstrate this right upper lobe infiltrate and was read as showing a chronic interstitial lung disease. However, based on the overall clinical picture it was felt that the patient likely did have an atypical pneumonia. Her strep pneumo and legionella urine antigens were negative. Ms. Bates did require oxygen early in the hospitalization, but as of yesterday afternoon she was weaned off and is now ambulating in her room independently without hypoxia. She continues to have inspiratory crackles, but no wheezing noted on examination to suggest a COPD exacerbation. For the pneumonia, she was treated with ceftriaxone and azithromycin and will be discharged to complete a course of azithromycin. Ms. Bates also was found to have positive urinalysis and concern for urinary tract infection which was confirmed via urine culture, which grew E. coli that was pansensitive and was treated with ceftriaxone. In addition,she complained of right-sided pain in her chest/abdomen. She had a very mild transaminitis with AST 41, ALT 58, alk phos 165. Her total bilirubin 0.2 as was the indirect bilirubin 0.2. For this, she had a liver ultrasound which showed "hepatomegaly with fatty infiltration of the liver, gallbladder wall thickening with small amount of pericholecystic fluid. On imaging, features are indeterminate. The differential diagnosis does include acalculous cholecystitis in the correct clinical setting. For this, the patient did have a consultation with Dr. Luong from the surgical services and went on for a HIDA scan. The HIDA scan was negative. On further review and questioning of the patient, it was noted that she had fallen on her right side the days prior to admission and was complaining of pain not only in her right mid abdomen but all along the chest wall on the right with discrete areas that were painful to palpation. This pain is resolving. I did chest x-ray to evaluate ribs and there were no rib fractures. The patient's transaminitis has essentially remained unchanged. Today, the day of discharge, her AST is 49, ALT 79, alk phos 142. Ms. Bates also had a new anemia during this hospitalization. Her hemoglobin was 11 on arrival and drifted down to 9.8. She reported an episode of dark tarry stool, which was found to be positive for occult blood. At that point, the patient's aspirin and heparin subcu were discontinued and she was started on omeprazole for a suspected possible stress ulceration in the setting of acute illness. She has had a stable hemoglobin on multiple checks over the past several days and it remains at 9.8/29. She reports a history of being up- to-date with colonoscopies with no previous abnormal findings. The plans are for her to follow up with a repeat CBC this week and to follow with the outpatient providers regarding need for possible endoscopy. At this point, her hemoglobin is stable and as she does not have a significant anemia. It is prudent to wait till her respiratory status is improved before proceeding for any possible endoscopy. Finally, I will note that Ms. Bates has had leukocytosis throughout the hospitalization. On arrival, her white blood cell count was 23.8. Over the several days, it is essentially unchanged and it is 19.2 on the day of discharge. She has remained afebrile. Her vitals are stable. In terms of other inflammatory markers, we had also checked a CRP. It was initially 308.32 and is now down to 101.39. I think clinically she is certainly improving and perhaps the white blood cell count is just lagging in terms of its response, but the patient will have a repeat CBC this week to reevaluate that as well as anemia. Ms. Bates is medically stable for discharge to home. Our plans will be to attempt to have her follow up with the [facility] here at our hospital and then with her usual providers when she returns to [place]. DISPOSITION: To home. DIET: Low salt. ACTIVITY: As tolerated. FOLLOWUP PLANS: 1. Please follow up with a CBC on 03/20/18. 2. Please follow up with [facility] this week. Our office will call the patient with an appointment if possible. TIME SPENT: Approximately 60 minutes was spent on the discharge of this patient , more than half the time was spent with the patient at the bedside reviewing the events leading up to this hospitalization and during this hospitalization, performing the physical examination, and reviewing my plan of care. KIRA BUSTOS NP [id number]/[facility] #: [id number] JANINE
== END 2018-03-17 11:33 | disposition home or self-care (01) | DRG 871 ==
LOC: ED 12:16 → MEDTELE 15:25
PROVIDERS: ADMIT Hospitalist; ATTEND Internal Medicine
DX: A41.9 Sepsis, unspecified organism (principal); J18.9 Pneumonia, unspecified organism; K27.4 Chronic or unspecified peptic ulcer, site unspecified, with hemorrhage; N39.0 Urinary tract infection, site not specified; D62 Acute posthemorrhagic anemia; I24.8 Other forms of acute ischemic heart disease; J44.1 Chronic obstructive pulmonary disease with (acute) exacerbation; E87.1 Hypo-osmolality and hyponatremia; E86.0 Dehydration; K81.9 Cholecystitis, unspecified; I11.9 Hypertensive heart disease without heart failure; I45.10 Unspecified right bundle-branch block; K76.0 Fatty (change of) liver, not elsewhere classified; B96.20 Unspecified Escherichia coli [E. coli] as the cause of diseases classified elsewhere; R74.0 Nonspecific elevation of levels of transaminase and lactic acid dehydrogenase [LDH]; G50.0 Trigeminal neuralgia; I25.10 Atherosclerotic heart disease of native coronary artery without angina pectoris; R09.02 Hypoxemia; E78.5 Hyperlipidemia, unspecified; F32.9 Major depressive disorder, single episode, unspecified; R07.9 Chest pain, unspecified; R10.11 Right upper quadrant pain; R74.8 Abnormal levels of other serum enzymes; W19.XXXA Unspecified fall, initial encounter; Z87.891 Personal history of nicotine dependence; I25.2 Old myocardial infarction; Z79.82 Long term (current) use of aspirin; Z79.899 Other long term (current) drug therapy; Z88.2 Allergy status to sulfonamides; Z82.49 Family history of ischemic heart disease and other diseases of the circulatory system; Z80.1 Family history of malignant neoplasm of trachea, bronchus and lung; Y92.9 Unspecified place or not applicable
CPT/HCPCS: 36415; 71046; 74019; 76705; 78226; 80048; 80053; 80076; 80156; 81003; 81015; 82270; 83605; 83880; 84145; 84484; 85025; 85060; 85610; 86140; 87040; 87070; 87077; 87086; 87186; 87205; 87899; 93005; 93306; 94640; 99213; 99284; A9270-GY; A9537; G0463; J0456; J0692; J0696; J1644; J2543; J7512